=== PATIENT | male | born 2005 | race Caucasian/White ===

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

== ENCOUNTER 2023-09-17 15:44 | Emergency (ER) | payer OTHER, SELFPAY ==
--- NOTE | ~2023-09-17 | XR_ITS ---
EXAMINATION: XR SHOULDER, RIGHT CLINICAL INFORMATION: Right shoulder pain, patient felt a pop COMPARISON: None available. TECHNIQUE: AP external rotation, Grashey, scapular Y views of the right shoulder. FINDINGS: The bones and soft tissues are normal. No fracture. Glenohumeral and acromioclavicular alignment is anatomic with normal joint space. No abnormal soft tissue calcifications. XR/XR shoulder RT min 2V IMPRESSION: Normal right shoulder.
[2023-09-17 15:58] VITALS: BP 138/86; PULSE 78; RESP 16; TEMP 36.7; O2SAT 98; BMI 25.1
--- NOTE | 2023-09-17 16:06 | ED.EXTPRO ---
HPI - Extremity Problem General Chief complaint: Extremity Injury, Upper Stated complaint: rt shoulder popped Time Seen by Provider: 09/17/23 17:30 Source: patient, RN notes reviewed and old records reviewed Mode of arrival: ambulatory History of Present Illness HPI Narrative: 18-year-old male with past medical history of depression presenting to the ED complaining of right shoulder pain and popping S/P benching/weightlifting last night. Reports felt shoulder pop in and out of place multiple times, now with pain with range of motion. Denies direct injury/trauma or fall, numbness/tingling, weakness MD Complaint: extremity pain Related Data Previous Rx's Medication Instructions Recorded aripiprazole 10 mg tablet 10 mg PO DAILY #30 tabs 05/23/21 clonidine HCl 0.2 mg tablet 0.2 mg PO BID #6 tabs 05/23/21 doxycycline hyclate 100 mg tablet 100 mg PO DAILY #7 tabs 05/23/21 melatonin 3 mg tablet 9 mg (3 x 3 mg) PO BEDTIME #30 tabs 05/23/21 Allergies Allergy/AdvReac Type Severity Reaction Status Date / Time act nip AdvReac Intermediate Rash Uncoded 05/17/21 15:43 Review of Systems Review of Systems: Constitutional: No Fever, No Chills ENT/Mouth: No Ear Pain, No Nasal Congestion, No sore throat, No Rhinorrhea, No Swallowing Difficulty Cardiovascular: No Chest Pain, No SOB Respiratory: No Cough Gastrointestinal: No Nausea, No Vomiting, No Diarrhea, No Constipation, No Abdominal pain Musculoskeletal: + joint pain, No Myalgias, No Joint Swelling Skin: No Skin Lesions, No rash Neuro: No Weakness, No Numbness, No Paresthesias Yes all other systems are reviewed and are negative Constitutional: Constitutional: Reports as per HPI [facility] Past Medical History Attestation statement: The following information was validated with the patient. Source: old records reviewed Onset Date is defined in the Problem List Problems that require an onset date and time if occurred within 24 hrs of arrival to the ED Aortic Dissection and Rupture; Neurologic impairment; Cardiopulmonary Arrest; Endotracheal Intubation; Insertion or Replacement of Mechanical Circulatory Assist Device Medical History Acetaminophen overdose Depression Social History Social History Household Members: Family Household Members Other:: grandma Housing: Condominium Do you presently have visiting nurse or other home services: No Patient Tobacco Use Status: Never used Tobacco e-Cigarette/Vaping Use: Never Used Second Hand Smoke Exposure: No Substance Use Type: Marijuana Advance Directives: No Advance Directives Information Provided: No service: No Current occupational status: unemployed Sexual orientation: Did not discuss. Physical Exam Vital Signs: Vital Signs: Last Vital Signs Temp 98.1 F 09/17/23 15:58 Pulse 78 09/17/23 15:58 Resp 16 09/17/23 15:58 BP 138/86 09/17/23 15:58 Pulse Ox 98 09/17/23 15:58 O2 Del Method Room Air 09/17/23 15:58 BMI result Body Mass Index 25.1 Const: General: cooperative, healthy appearing and no acute distress Orientation/consciousness: patient oriented x3 Limitations: no limitations HEENT: Head: Yes normal to inspection and Yes atraumatic Ears: hearing grossly normal bilaterally General nose exam: Normal external nose present Face and sinus: Yes normal facial exam Eyes: General: appearance normal, both eyes and all related structures EOM: EOMs intact bilaterally Neck: Neck: Yes normal visual inspection and Yes no meningeal signs Resp: Effort & Inspection: normal respiratory effort and no respiratory distress Cardio: Rate: regular rate Skin: Rashes: no rashes Wounds: no wounds Neuro: General: patient oriented x3, tone normal and no meningeal signs Cranial nerves: Yes CN's II-XII intact bilaterally Gait exam (Neuro): Normal gait present Extrem: Other: Right shoulder without noted deformity. Mildly tender to AC joint. ROM intact, slightly limited abduction 2/2 pain. Neurovascular intact distally. No erythema or warmth General: Yes normal to inspection Course Course Course Narrative: RME: 18-year-old male presents to ED for right shoulder popping sound after doing incline bench press. Patient clinically range of motion of right shoulder but with popping sound. Will do x-ray. XR shoulder RT min 2V IMPRESSION: Normal right shoulder. Results discussed with patient including worrisome signs and symptoms and strict return precautions, and when to return to the emergency department. They verbalized understanding and feel safe for discharge at this time. Medical Decision Making Medical Decision Making MDM Narrative: 18-year-old male with past medical history of depression presenting to the ED complaining of right shoulder pain and popping S/P benching/weightlifting last night. On exam vital signs stable, NAD, nontoxic appearing, physical exam as noted above. Concern for soft tissue injury/tendinitis/tendon/ligament or rotator cuff injury. Low suspicion for fracture or dislocation. No evidence of septic joint Plan: X-rays Please refer to course for remaining clinical decision making, interpretation of labs/imaging results, and discussions with consultants and/or family members. Differential Diagnosis Differential Diagnoses: The differential diagnosis associated with the presentation includes As above Lab Data MDM Lab Attestation statement: I reviewed the patient's lab results. Independent Interpretation I performed an independent interpretation of an: Plain X-Ray Radiology Impression Discussion of test interpretation with radiology: I have reviewed the radiologist's reading. External Record Review External record reviewed: Inpatient record, Office record, Outpatient record, Prior outpatient labs, Prior outpatient radiology, Primary care record and Outside ED record Tests considered The following testing was considered but not selected: As above Prescription Management I considered prescription management with: Pain Medication Discharge Plan Discharge Clinical Impression: Acute shoulder pain Patient Disposition: Home, Self-Care Instructions: Shoulder Pain (ED) Additional Instructions: Your x-ray is unremarkable Take Tylenol and Motrin for pain Please avoid any heavy lifting/strenuous exercise until you see the specialist. Rest. Ice & heat, alternating If symptoms persist or worsen return to the ED Prescriptions: No Action aripiprazole 10 mg Tablet 10 mg PO DAILY Qty: 30 0RF melatonin 3 mg Tablet 9 mg PO BEDTIME Qty: 30 0RF doxycycline hyclate 100 mg Tablet 100 mg PO DAILY Qty: 7 0RF clonidine HCl 0.2 mg Tablet 0.2 mg PO BID Qty: 6 2RF Protocol: Hold for SBP< HOLD for SBP < : 90 Referrals: [facility] [Provider Group] Alfonso Mcdonough MD [Primary Care Provider] - Interventions: ED Discharge Assessment Last Done: 09/17/23 18:22 Discharge Date/Time: 09/17/23 18:23
== END 2023-09-17 18:23 | disposition home or self-care (01) ==
PROVIDERS: Emergency Provider Student in an Organized Health Care Education/Training Program; PCP Pediatrics
DX: M25.511 Pain in right shoulder (principal)
CPT/HCPCS: 73030; 99283

== ENCOUNTER 2023-10-11 10:56 | Outpatient (AMB) | payer OTHER, SELFPAY ==
[2023-10-11 10:58] VITALS: BMI 25.1
--- NOTE | 2023-10-11 10:58 | MHC.OFFVIS ---
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 Patient reports his pain has been going on for about 3 weeks but has improved and is a 1 on the 1-10 pain scale. He states he injured the shoulder at the gym on the incline bates bench. He denies any numbness or tingling. He has good ROM. 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 He currently states he has improvement in his pain and cracking and rates the pain as 1 on the scale of 0-10. He also experiences difficulty with pushing exercises and bench presses at gym. He denies any numbness or tingling. [facility] Medical History Acetaminophen overdose Depression Social History Household Members: Family Household Members Other:: grandma Housing: Condominium Do you presently have visiting nurse or other home services: No Patient Tobacco Use Status: Never used Tobacco e-Cigarette/Vaping Use: Never Used Second Hand Smoke Exposure: No Substance Use Type: Marijuana service: No Current occupational status: unemployed Sexual orientation: Did not discuss. Review of Systems Const All systems reviewed & are unremarkable except as noted in HPI and below Physical Exam Vital Signs: BMI result Body Mass Index 25.1 Const General: cooperative, healthy appearing, comfortable, no acute distress, well developed and alert Orientation/consciousness: patient oriented x3 HEENT Head: Yes normal to inspection, Yes normocephalic and Yes atraumatic Eyes General: appearance normal, both eyes and all related structures Resp Effort & Inspection: normal respiratory effort and able to speak in complete sentences Cardio Rate: regular rate Peripheral pulses: Peripheral pulses 2+ throughout GI Palpation (GI): Soft to palpation Skin Lesions: no lesions Rashes: no rashes Neuro General: patient oriented x3 Extrem Other: Right shoulder: Normal to inspection. No bony abnormality around the clavicle. He has full ROM in all planes with hypermobility in certain position. Positive Sulcus sign which is present on the contralateral side. Negative apprehension test. No tenderness over the coracoclavicular ligament. Results Reviewed Results Reviewed: xrays of the right shoulder obtained at an outside facility are negative for acute or chronic abnormalities. Assessment & Plan Assessment & Plan (1) Multidirectional instability of right glenohumeral joint: Code(s): M25.311 - Other instability, right shoulder Plan Given the fact that majority of his symptoms has resolved he was given a course of physical therapy to work on scapular stabilization and RTC strengthening. He needs to work on modification of overhead activities due to his naturally instable shoulder to prevent further injury. I also referred him to therapy to look at how he performs the exercises to correct him as needed and he was given a note for this. He will perform no overhead lifting and if symptoms persist or worsens, patient will contact the office, otherwise follow-up as needed. Orders: Orders PT Evaluation and Treatment Today M25.311 - Other instability, right shoulder Patient Instructions: Scribed for Lupe Ulloa PA-C, by Shaun Lane medical lab technician, on 10/11/2023 at 11:00 AM GABRIELLE. Lupe Baldwin PA-C, have personally reviewed and agree with the information entered by the scribe. Coding Level of Care Code New Pt Level 3 (91326) Diagnoses Multidirectional instability of right glenohumeral joint M25.311
== END 2023-10-11 11:25 | disposition home or self-care (01) ==
PROVIDERS: PCP Pediatrics; Visit Provider Physician Assistant
DX: M25.311 Other instability, right shoulder (principal)
CPT/HCPCS: 99203

== ENCOUNTER → 2023-10-11 10:56 | Outpatient (BNVA) | payer OTHER, SELFPAY | PROVIDERS: PCP Pediatrics; Visit Provider Physician Assistant | DX: M25.311 Other instability, right shoulder (principal) | CPT/HCPCS: 99202 ==

== ENCOUNTER 2023-12-25 16:00 | Outpatient (RCR) | payer OTHER, SELFPAY ==
--- NOTE | 2023-11-06 07:47 | MHC.PT.EP ---
[facility] [place] Office [place] Office [place] Office [address] [phone] F: [phone] F: [phone] F: [phone] F: [phone] Physical Therapy Plan of Care Date of Evaluation: 11/05/23 Date of Surgery: NA Diagnosis: MULTIDIRECTIONAL INSTABILITY OF R GLENOHUMERAL JOINT Assessment: Pt IS 18 YO M REFERRED TO PT FROM [facility] ([facility]) WITH MDI R SHLDER. PRESENTS WITH GOOD SHLDER ROM WITH SOME LIMITED STRENGTH WITH INSTABILITY NOTED WITH CERTAIN MOVEMENTS OF R SHLDER. Pt REPORTS SOME LIMITATIONS WITH WORK OUTS BECAUSE OF SHLDER INSTABILITY. SHOULD BENEFIT FROM PT TO HELP IMPROVE R SHLDER STABILITY FOR ADLS AND WORK OUTS Frequency and Duration: The patient will be seen 1X/WK X 6 WKS Short Term Goals: 1.INCREASED POSTURE AWARENESS AND AWARENESS OF SHOULDER CARE 2. 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 GYM WORKOUTS WITHOUT ISSUE 3. DECREASED R SHLDER PAIN AT LEAST 50% WITH ADLS Treatment Plan: Modalities to reduce pain, spasms and effusion. Manual therapy to restore motion and function. Therapeutic exercise to improve strength and flexibility. Neuromuscular re-education for posture and balance. Therapeutic activities to return to functional activities of daily living. Electronically signed by: ARLINE SUTHERLAND PT Please sign and return to therapist. Thank you for your referral.
--- NOTE | 2024-02-26 13:39 | MHC.PT.DC ---
[facility] [place] [facility] [place] [facility] [place] [facility] [address] [place] [address] [phone] F: [phone] F: [phone] F: [phone] F: [phone] Physical Therapy Discharge Report Diagnosis: MULTIDIRECTIONAL INSTABILITY OF R GLENOHUMERAL JOINT Date of Surgery: NA Date of Evaluation: 11/05/23 Date of Discharge: Treatments to Date: 5 Cancellations to Date: No Shows to Date: Discharge Status: Patient Elected to Stop Recommend MD Follow-up Discharge Summary: PER ASSESSMENT FROM LAST NOTE BY NEDRA MCRAE PT,DPT ON 12/25/23 Bayron comes to therapy today feeling about the same and just feels instability in his shoulder. So we focused more on scapular stab today with minor discomfort and good form throughout. Updated his HEP and discussed why we are starting off light with exercises and importance of getting stability within his shoulder with good understanding from patient. He felt like the tape last time wasn't doing much so we didn't do it today. Pt THEN NO SHOWED LAST SCHEDULED APPT Electronically signed by: ARLINE SUTHERLAND PT Please sign and return to therapist. Thank you for your referral.
== END 2024-02-26 13:40 | disposition home or self-care (01) ==
LOC: HO.PT 16:00
PROVIDERS: PCP Pediatrics; Visit Provider Physician Assistant
DX: M25.311 Other instability, right shoulder (principal)
CPT/HCPCS: 97110; 97161; 97535

== ENCOUNTER 2023-12-28 11:52 | Emergency (ER) | payer OTHER, SELFPAY ==
[2023-12-28 12:04] VITALS: BP 128/80; PULSE 109; RESP 18; TEMP 36.9; O2SAT 100; BMI 24.3
--- NOTE | 2023-12-28 12:04 | ED_ITS ---
HPI - URI/Sore Throat General Chief Complaint: Upper Respiratory Symptoms Stated Complaint: breathing difficulties, swollen tonsils Time Seen by Provider: 12/28/23 12:48 Source: patient Mode of arrival: ambulatory Limitations: no limitations History of Present Illness HPI Narrative: 18-year-old male presents with fatigue, malaise, myalgias, sore throat of which started yesterday reports that was bothering most is the sore throat he has not been able to eat much due to pain. Denies any sick contacts. Denies chest pain, shortness of breath, nausea, vomiting, abdominal pain, headache, vision changes, dizziness, weakness, diarrhea, changes in voice, drooling. He reports he gets this sometimes but usually goes away on its own after 3 days this time it seems worse Related Data Previous Rx's ?Medication ?Instructions ?Recorded Magic Mouthwash 5 ml PO TID #240 mL 12/28/23 Diphen/Lido/Antacid 1:1:1 240 mL suspension acetaminophen 325 mg capsule 650 mg (2 x 325 mg) PO Q4H PRN 12/28/23 (Tylenol) fever or pain #14 caps ibuprofen 600 mg tablet 600 mg PO Q6H PRN fever or pain 12/28/23 #14 tabs prednisone 50 mg tablet 50 mg PO DAILY 5 days #5 tabs 12/28/23 Allergies Allergy/AdvReac Type Severity Reaction Status Date / Time No Known Allergies Allergy Verified 12/28/23 12:07 Review of Systems Review of Systems: Yes all other systems are reviewed and are negative PMFSH Past Medical History Attestation statement: The following information was validated with the patient. Source: old records reviewed and nursing notes reviewed Medical History Acetaminophen overdose Depression Social History Social History Household Members: Family Household Members Other:: grandma Housing: Condominium Do you presently have visiting nurse or other home services: No Patient Tobacco Use Status: Never used Tobacco e-Cigarette/Vaping Use: Never Used Second Hand Smoke Exposure: No Substance Use Type: Marijuana Advance Directives: No service: No Current occupational status: unemployed Sexual orientation: Did not discuss. Physical Exam Vital Signs: Vital Signs: Last Vital Signs Temp 98.4 F 04/20/24 12:04 Pulse 109 H 12/28/23 12:04 Resp 18 12/28/23 12:04 BP 128/80 12/28/23 12:04 Pulse Ox 100 12/28/23 12:04 O2 Del Method Room Air 12/28/23 12:04 BMI result Body Mass Index 24.3 vss Appearance: Alert.? Oriented X3.? No acute distress.? Head: Normocephalic, atraumatic, no step-offs or deformities Eyes: Pupils equal, round and reactive to light.? ENT: Pharynx w/ enlarged tonsils b/l.??Uvula midline. No exudate or abscess. Speaking in full sentences controlling secretions well. External ears normal, TMs normal bilaterally and EAC's normal. No pain with manipulation of external ears bilaterally. No mastoid tenderness. Neck: Normal inspection.? Neck supple.? CVS: Normal heart rate and rhythm.? Pulses normal.? Respiratory: No respiratory distress.? Breath sounds normal.? Abdomen: Soft and nontender.? Skin: Skin warm and dry.? Normal skin color.? Normal skin turgor.? Extremities: No lower extremity edema.? No calf ttp. 5/5 strength to bilateral upper and lower extremities Neuro: Oriented X 3.? No motor deficit.? No sensory deficit. CN 2-12 intact Course Course Course Narrative: This is a rapid medical exam. Deferred additional HPI, ROS, PE to primary provider. 18yo male with no known medical history here with swollen tonsils x several days, subjective fevers, chills. Will obtain viral testing, monoscreen, strep. VSS Reevaluation(s) Reevaluation #1: Patient positive for mononucleosis. Negative for strep. Flu COVID RSV pending. Patient to be discharged with supportive measures, magic mouthwash and prednisone. Advised to return with new or worsening symptoms. Educated patient on diagnosis and treatment plan, answered all question, patient verbalizes understanding. At this time patient will be discharged home, advised to return with new or worsening symptoms. Educated on worrisome signs and symptoms and when to return. At this time I feel comfortable discharge home. Time: 13:18 Medical Decision Making Medical Decision Making [facility] Narrative: 1251 18 year old male prsents w/ fatigue, malaise, myalgias and sore throat since yesterday Pharynx w/ enlarged tonsils b/l.??Uvula midline. No exudate or abscess. Speaking in full sentences controlling secretions well. External ears normal, TMs normal bilaterally and EAC's normal. No pain with manipulation of external ears bilaterally. No mastoid tenderness. History and physical exam concerning for viral illness versus strep throat versus mononucleosis versus flu versus COVID. No signs of peritonsillar abscess, retropharyngeal abscess, epiglottitis, acute threat to airway. Plan will do viral testing is plan by previous provider. Differential Diagnosis Differential Diagnoses: The differential diagnosis associated with the presentation includes History and physical exam concerning for viral illness versus strep throat versus mononucleosis versus flu versus COVID. No signs of peritonsillar abscess, retropharyngeal abscess, epiglottitis, acute threat to airway. Admission/Observation Consideration of admission/observation: Escalation of care including admission/observation considered Unlikely Lab Data MDM Lab Attestation statement: I reviewed the patient's lab results. Labs: Lab Results 12/28/23 Range/Units 12:18 Monoscreen Positive A (Negative) S. pyogenes GrpA STEWART Negative (Negative) Tests considered The following testing was considered but not selected: No signs of threat to airway, no signs of abscess. No indication for imaging of the neck/throat. Prescription Management I considered prescription management with: Antibiotic Critical Care Time Critical Care Time Critical Care Time: No Discharge Plan Discharge Clinical Impression: Mononucleosis Patient Disposition: Home, Self-Care Instructions: Mononucleosis (ED) Additional Instructions: Take your medications as prescribed. If you were prescribed antibiotics today, it is important that you take your medication to their entirety, do not skip any doses, do not finish them early. Follow-up with your primary care provider this week. Return to the emergency department with new or worsening symptoms. Such as fevers, chills, chest pain, shortness of breath, nausea, vomiting, dizziness, headache, vision changes, lethargy In case of emergency call 911 You can take ibuprofen every 6 hours Tylenol every 4 as needed for fever pain or discomfort. Return with any new or worsening symptoms or if you feel like he can not breathe or if you have changes in voice or trouble controlling your own secretions. Prescriptions: New prednisone 50 mg tablet 50 mg PO DAILY 5 Days Qty: 5 0RF Magic Mouthwash Diphen/Lido/Antacid 1:1:1 240 mL suspension 5 ml PO TID Qty: 240 0RF Rx Instructions: Lidocaine Viscous 2 % 80mL; diphenhydramine 12.5 mg/5 mL 80mL; aluminum-mag hydrox-simeth [id number]/5mL 80mL Swish and spit, do not swallow acetaminophen [Tylenol] 325 mg capsule 650 mg PO Q4H PRN (Reason: fever or pain) Qty: 14 0RF ibuprofen 600 mg tablet 600 mg PO Q6H PRN (Reason: fever or pain) Qty: 14 0RF Referrals: Karla Mccarthy SERVICE CORRESPONDENT [Primary Care Provider] - 2 days Stand Alone Forms: Work/School Release Print Language: Turkmen
[2023-12-28 12:54] LABS: IDNOW Serial# 08D9AD1C; Strep A Nucleic Acid Negative (Negative)
[2023-12-28 13:05] LABS: Monotest Positive (Negative)
[2023-12-28 13:29] LABS: Influenza A PCR NEGATIVE (Negative); Influenza B PCR NEGATIVE (Negative); Resp Syncy Virus RNA Qual PCR NEGATIVE (Negative); SARS COV2 PCR INHOUSE NEGATIVE (Negative)
[2023-12-28] MEDS: Lidocaine HCl Viscous 2 % 15 ML SOLUTION MUCOUS MEM (13:51)
[2023-12-28] MEDS: dexAMETHasone sod phosphate 10 MG/ML VIAL IVPUSH (13:52)
[2023-12-28 13:56] VITALS: BP 126/76; PULSE 112; TEMP 37.3; O2SAT 100
== END 2023-12-28 14:04 | disposition home or self-care (01) ==
PROVIDERS: Nurse Practitioner Family; Emergency Provider Emergency Medicine; PCP Nurse Practitioner
DX: B27.90 Infectious mononucleosis, unspecified without complication (principal); J02.9 Acute pharyngitis, unspecified; Z11.52 Encounter for screening for COVID-19; Z20.828 Contact with and (suspected) exposure to other viral communicable diseases
CPT/HCPCS: 0241U; 86308; 87651; 99283; 99284; J1100

== ENCOUNTER 2023-12-30 05:31 | Emergency (ER) | payer OTHER, SELFPAY ==
[2023-12-30 05:55] VITALS: BP 125/72; PULSE 116; RESP 16; TEMP 37.6; O2SAT 100; BMI 24.2
[2023-12-30 06:25] LABS: IDNOW Serial# 08D9AD1C; Strep A Nucleic Acid Negative (Negative)
--- NOTE | 2023-12-30 09:27 | ED_ITS ---
HPI - URI/Sore Throat General Chief Complaint: General Medical Stated Complaint: tonsils swollen Time Seen by Provider: 12/30/23 09:11 Source: patient and old records reviewed Mode of arrival: ambulatory Limitations: no limitations History of Present Illness HPI Narrative: 18 yo male who was seen here on 12/27 and dx with mono after c/o sore throat and body aches. He comes back as overnight he felt like he couldn't swallow he cannot eat. He was unable to fill the Rx due to [employer] insurance issues. He feels his throat is so painful and swollen. MD elicited complaint: sore throat Onset (ago): day(s) (few) Consistency: constant Severity: severe Description of mucous: clear Able to tolerate fluids by mouth: Yes (but painful) Exacerbating factors: swallowing Relieving factors: nothing Context: other (known mono 12/27) Associated symptoms: fever, chills, headache and sore throat Treatments prior to arrival: none Related Data Previous Rx's ?Medication ?Instructions ?Recorded Magic Mouthwash 5 ml PO TID #240 mL 12/28/23 Diphen/Lido/Antacid 1:1:1 240 mL suspension acetaminophen 325 mg capsule 650 mg (2 x 325 mg) PO Q4H PRN 12/28/23 (Tylenol) fever or pain #14 caps ibuprofen 600 mg tablet 600 mg PO Q6H PRN fever or pain 12/28/23 #14 tabs prednisone 50 mg tablet 50 mg PO DAILY 5 days #5 tabs 12/28/23 amoxicillin 875 mg-potassium 1 tab PO BID #14 tabs 12/30/23 clavulanate 125 mg tablet Allergies Allergy/AdvReac Type Severity Reaction Status Date / Time No Known Allergies Allergy Verified 12/30/23 05:59 Review of Systems Review of Systems: Constitutional : No Fever, pos Chills, pos Fatigue ENT/Mouth : pos sore throat, No Rhinorrhea, pos anorexia Eyes: No Eye Pain, No Swelling, No Redness Cardiovascular : No Chest Pain, No SOB, No Dyspnea on Exertion Respiratory : No Cough, No Sputum Gastrointestinal : No Nausea, No Vomiting, No Diarrhea, No abdominal Pain Genitourinary : No Dysuria, No Urinary Frequency, No Hematuria, Musculoskeletal : No joint pain, No Myalgias, No Joint Swelling Skin : No Skin Lesions, No rash Neuro : No Weakness, No Numbness, No Dizziness, no Headache All other systems reviewed and are negative [facility] Past Medical History Attestation statement: The following information was validated with the patient. Source: old records reviewed Medical History Acetaminophen overdose Depression Social History Social History Household Members: Family Household Members Other:: grandma Housing: Condominium Do you presently have visiting nurse or other home services: No Patient Tobacco Use Status: Never used Tobacco Smoked in Last 30 Days: Yes e-Cigarette/Vaping Use: Never Used Second Hand Smoke Exposure: No Use of substances other than those prescribed or required for medical reasons: Yes Substance Use Type: Marijuana Advance Directives: No Advance Directives Information Provided: No service: No Current occupational status: unemployed Sexual orientation: Did not discuss. Physical Exam Vital Signs: Vital Signs: Last Vital Signs Temp 99.3 F 12/30/23 09:32 Pulse 105 H 12/30/23 09:32 Resp 18 12/30/23 09:32 BP 137/80 12/30/23 09:32 Pulse Ox 98 12/30/23 09:32 O2 Del Method Room Air 12/30/23 09:32 BMI result Body Mass Index 24.2 Appearance: Alert. Oriented X3. No acute distress. Eyes: Pupils equal, round and reactive to light. ENT: Pharynx tonsils are swollen but not kissing and uvula is midline no exudates erythema is noted there is no drooling, stridor and voice is not muffled Neck: bilateral ant and post shotty lymphadenopathy CVS: Normal heart rate and rhythm. Pulses normal. Respiratory: No respiratory distress. Breath sounds normal. Abdomen: Soft and nontender. Skin: Skin warm and dry. Normal skin color. Extremities: No lower extremity edema. Neuro: Oriented X 3. No motor deficit. No sensory deficit. Medications Administered Discontinued Medications Generic Name Dose Route Start Last Admin Trade Name Freq PRN Reason Stop Dose Admin Dexamethasone Sodium Phosphate 8 mg 12/30/23 09:19 12/30/23 09:30 Dexamethasone Sod Phosphate 4 Mg/Ml Vial IVPUSH 12/30/23 09:20 8 mg ONCE ONE Administration Sodium Chloride 1,000 mls @ 999 mls/hr 12/30/23 09:30 12/30/23 10:35 Ns IV 12/30/23 10:30 Infused .Q1H1M JESICA Infusion Ketorolac Tromethamine 15 mg 12/30/23 09:19 12/30/23 09:30 Ketorolac Tromethamine 15 Mg/Ml Vial IVPUSH 12/30/23 09:20 15 mg ONCE ONE Administration Medical Decision Making Medical Decision Making [facility] Narrative: 18 yo male with known mono here with c/o sore throat unable to fill Rx - at this time uvula is midline no stridor no muffled voice no drooling will give IVF, toradol, dexamethasone and reassess. He has no signs of deeper space i nfection, no signs of jaundice, denies abdominal pain. Differential Diagnosis Differential Diagnoses: The differential diagnosis associated with the presentation includes mono, pharyngitis Admission/Observation Consideration of admission/observation: Escalation of care including admission/observation considered feels much better after medications states he can go to the pharmacy today to fill Rx given repeat visits I am going to start on amoxicillin has hx of recurrent tonsillitis Lab Data [facility] Lab Attestation statement: I reviewed the patient's lab results. Labs: Lab Results 12/30/23 Range/Units 06:12 S. pyogenes GrpA STEWART Negative (Negative) External Record Review External record reviewed: Inpatient record Tests considered The following testing was considered but not selected: CT neck but uvulia is midline doubt [employer] or retropharyngeal abscess at this time Prescription Management I considered prescription management with: Pain Medication and Antibiotic Discharge Plan Discharge Clinical Impression: Acute tonsillitis due to infectious mononucleosis Patient Disposition: Home, Self-Care Instructions: Mononucleosis (ED), Tonsillitis (ED) Additional Instructions: return for yellow eyes, sever abdominal pain, easy bruising or any other complaints start the prednisone tomorrow no contact sports or anything that could cause injury to spleen (left upper abdomen) for 4 weeks Prescriptions: New amoxicillin-pot clavulanate 875-125 mg tablet 1 tab PO BID Qty: 14 0RF No Action prednisone 50 mg tablet 50 mg PO DAILY 5 Days Qty: 5 0RF Magic Mouthwash Diphen/Lido/Antacid 1:1:1 240 mL suspension 5 ml PO TID Qty: 240 0RF Rx Instructions: Lidocaine Viscous 2 % 80mL; diphenhydramine 12.5 mg/5 mL 80mL; aluminum-mag hydrox-simeth [id number]/5mL 80mL Swish and spit, do not swallow acetaminophen [Tylenol] 325 mg capsule 650 mg PO Q4H PRN (Reason: fever or pain) Qty: 14 0RF ibuprofen 600 mg tablet 600 mg PO Q6H PRN (Reason: fever or pain) Qty: 14 0RF Stand Alone Forms: Work/School Release Print Language: Austrian
[2023-12-30] MEDS: Ketorolac Tromethamine 15 MG/ML VIAL IVPUSH (09:30)
[2023-12-30] MEDS: 0.9 % Sodium Chloride 1,000 ML 999 ML IV (09:30)
[2023-12-30] MEDS: dexAMETHasone sod phosphate 4 MG/ML VIAL 8 MG IVPUSH (09:30)
[2023-12-30 09:32] VITALS: BP 137/80; PULSE 105; RESP 18; TEMP 37.4; O2SAT 98
--- NOTE | 2023-12-30 09:35 | PC.NURSE ---
a&ox4. vss and up to date aside from being slightly tachy. HR 105bpm. denies chest pain/palpitations. pt c/o 9/10 throat pain that increases while swallowing. pt verbalizes decreased PO intake and being unable to sleep d/t pain. no sob/wob noted. pt able to speak in full/clear sentences w/o difficulty. respirations even and unlabored. 20gIV placed in the right AC - medication/IVF administered per provider order. plan of care ongoing. call parra placed within reach.
[2023-12-30 11:51] VITALS: BP 127/72; PULSE 78; RESP 16; TEMP 37.4; O2SAT 97
== END 2023-12-30 11:52 | disposition home or self-care (01) ==
PROVIDERS: Emergency Provider Emergency Medicine; PCP Pediatrics
DX: B27.99 Infectious mononucleosis, unspecified with other complication (principal); J03.90 Acute tonsillitis, unspecified
CPT/HCPCS: 87651; 96361; 96374; 96375; 99284; 99285; J1100; J1885

== ENCOUNTER 2024-06-24 23:51 | Emergency (ER) | payer OTHER, SELFPAY ==
[2024-06-24 23:56] VITALS: BP 128/78; PULSE 66; RESP 16; TEMP 36.6; O2SAT 97; BMI 24.5
[2024-06-25 00:29] LABS: Appearance Urine Clear; Color Urine Yellow; Glucose Urine UA Negative (Negative); Leukocyte Esterase Urine Negative (Negative); Nitrite Urine Negative (Negative); Specific Gravity - Urine 1.025 (1.005-1.025); Urine Blood Negative (Negative); Urine Ketones Negative (Negative); Urine Protein Negative (Neg-Trace)
--- OUTSIDE RECORDS SUMMARY | 2024-06-25 00:49 | XMS_ITS | Continuity of Care Document ---
Author Organization [facility] Address Unknown Care Team Providers Care Mattress Maker Name Role Phone Cross Alina NOVA Primary Care Physician Unavaila ble Encounter [facility] [place] Date(s): 10/03/21 - 11/02/21 [facility] Attending Physician: Tc Soto Admitting Physician: Tc Soto Referring Physician: Tc Soto Allergies, Adverse Reactions, Alerts Substance Reaction Severity Status Cats Active Medications clonidine 0.1 mg oral tablet See Instructions, 1 tab by mouth in am and at 4 pm daily, 0 Refills, Maintenance Start Date: 08/20/13 Status: Ordered Dexedrine Spansule 10 mg oral capsule, extended release 2 capsule = 20 mg, By Mouth, Daily in AM, 0 Refills, Maintenance Start Date: 09/10/13 Status: Ordered dextroamphetamine 10 mg oral tablet 1 tablet = 10 mg, By Mouth, Daily, orderly for ADHD, # 30 tablet, 0 Refills, Maintenance Start Date: 09/07/13 Status: Ordered Seroquel 50 mg oral tablet 1 tablet = 50 mg, By Mouth, Daily, daily at bedtime - may take half a tablet at night if it makes him groggy in the morning., 0 Refills, Maintenance Start Date: 08/20/13 Status: Ordered
--- OUTSIDE RECORDS SUMMARY | 2024-06-25 00:49 | XMS_ITS | Continuity of Care Document ---
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
[2024-06-25 02:04] LABS: CT PCR NOT DETECTED (Not Detect.); NG PCR NOT DETECTED (Not Detect.)
--- NOTE | 2024-06-25 06:52 | ED_ITS ---
HPI - Male Genitourinary General Chief complaint: Urogenital-Male Stated complaint: STI? Penis pain and burning Time Seen by Provider: 06/25/24 06:39 Source: patient Mode of arrival: ambulatory Limitations: no limitations History of Present Illness ED Provider: Kayla Carias PA-C HPI Narrative: Patient is a 19 year old assigned male at with a history of MDD presenting to the emergency department today with painful urination and concern of STI. Patient states that he has had some burning with urination and is concerned about a possible STI. Patient denies any dizziness, lightheadedness, abdominal pain, nausea, vomiting, fever, chills, blurry vision, double vision, loss of vision, chest pain, difficulty breathing, shortness of breath, back pain, night sweats, increased urinary frequency, increased urinary urgency, blood in his urine or stool, syncope or a near syncopal episode, recent trauma or falls, bowel incontinence, bladder incontinence, or any other complaints at this time. Relieving factors: none Exacerbating factors: none Associated symptoms: Reports dysuria Related Data Previous Rx's ?Medication ?Instructions ?Recorded Magic Mouthwash 5 ml PO TID #240 mL 12/28/23 Diphen/Lido/Antacid 1:1:1 240 mL suspension acetaminophen 325 mg capsule 650 mg (2 x 325 mg) PO Q4H PRN 12/28/23 (Tylenol) fever or pain #14 caps ibuprofen 600 mg tablet 600 mg PO Q6H PRN fever or pain 12/28/23 #14 tabs prednisone 50 mg tablet 50 mg PO DAILY 5 days #5 tabs 12/28/23 amoxicillin 875 mg-potassium 1 tab PO BID #14 tabs 12/30/23 clavulanate 125 mg tablet Allergies Allergy/AdvReac Type Severity Reaction Status Date / Time No Known Allergies Allergy Verified 06/25/24 00:01 Review of Systems Constitutional: Constitutional: Reports no additional constitutional complaints, Denies chills, Denies fever(s) and Denies night sweats Eyes: Eyes: Reports no additional eye complaints, Denies blurry vision, Denies change in vision, Denies diplopia, Denies eye discharge, Denies loss of vision and Denies eye pain ENT: Denies dizziness Cardiovascular: Cardiovascular: Reports no additional cardiovascular complaints, Denies chest pain, Denies lightheadedness, Denies Loss of Consciousness and Denies dyspnea Respiratory: Respiratory: Reports no additional respiratory complaints and Denies dyspnea Gastrointestinal: Gastrointestinal: Reports no additional gastrointestinal complaints, Denies abdominal pain, Denies melena, Denies hematochezia, Denies change in bowel habits and Denies change in stool character Genitourinary: Genitourinary: Reports no additional male genitourinary complaints, Denies hematuria, Denies oliguria, Denies difficulty urinating, Reports dysuria, Denies urinary frequency, Denies urinary hesitancy, Denies urinary incontinence and Denies urinary urgency Musculoskeletal: Musculoskeletal: Reports no additional musculoskeletal complaints, Denies numbness and Denies tingling Neurologic: Denies dizziness, Denies loss of vision, Denies numbness and Denies tingling Psychiatric: Psychiatric: Reports no additional psychiatric complaints Endocrine: Endocrine: Reports no additional endocrine complaints Hematologic/Lymphatic: Hematologic/Lymphatic: Reports no additional hematologic/lymphatic complaints Allergic/Immunologic: Allergic/Immunologic: Reports no additional al lergic/immunologic complaints PMFSH Past Medical History Attestation statement: The following information was validated with the patient. Source: old records reviewed and nursing notes reviewed Medical History Acetaminophen overdose Depression Social History Social History Household Members: Family Household Members Other:: grandma Housing: Condominium Do you presently have visiting nurse or other home services: No Patient Tobacco Use Status: Never used Tobacco e-Cigarette/Vaping Use: Never Used Second Hand Smoke Exposure: No Substance Use Type: Marijuana Advance Directives: No Advance Directives Information Provided: Yes service: No Current occupational status: unemployed Sexual orientation: Did not discuss. Physical Exam Vital Signs: Vital Signs: Last Vital Signs Temp 97.8 F 06/25/24 07:10 Pulse 66 06/25/24 07:10 Resp 16 06/25/24 07:10 BP 128/78 06/25/24 07:10 Pulse Ox 97 06/25/24 07:10 O2 Del Method Room Air 06/25/24 07:10 BMI result Body Mass Index 24.5 Const: General: cooperative, no acute distress, alert and awake Nutritional Appearance: well nourished Orientation/consciousness: patient oriented x3 Limitations: no limitations HEENT: Head: Yes normal to inspection and Yes atraumatic Ears: hearing grossly normal bilaterally and external ears normal General nose exam: Normal external nose present, no nasal discharge noted and no epistaxis Face and sinus: Yes normal facial exam, No abrasion and No laceration Mouth: Normal oral and palatal mucosa present, no drooling and no muffled voice Eyes: General: appearance normal, both eyes and all related structures Periorbital: periorbital findings normal Eyelids: Yes eyelids normal Conjunctivae: conjunctivae normal Pupils: Equal, round and reactive pupils present EOM: EOMs intact bilaterally Neck: Neck: Yes normal visual inspection, Yes full ROM and Yes no lymphadenopathy Chest: Chest palpation & inspection: normal inspection of the chest Resp: Effort & Inspection: normal respiratory effort and able to speak in complete sentences GI: Inspection: Yes normal to inspection Neuro: General: patient oriented x3 and moves all extremities Cranial nerves: Yes Equal, round and reactive pupils present Cognition (Neuro): normal cognition Extrem: General: Yes normal to inspection, Yes full ROM and Yes capillary refill normal Psych: Appearance: grossly normal Mental Status: mental status grossly normal Affect: normal affect Attitude: cooperative Thought process: Normal thought process present Thought content: Normal thought content present Insight: Good insight present (Psych) Medical Decision Making Medical Decision Making MDM Narrative: Patient is a 19 year old assigned male at with a history of MDD presenting to the emergency department today with painful urination and concern of STI. Patient's physical exam was unremarkable. Patient declined a genital exam. Patient's urine showed no acute process. Patient negative for CT/NG. I explained my physical exam findings as well as all test results to the patient. I answered all questions asked by the patient. I stressed the importance of the patient taking his medication as directed (either prescribed or as the over the counter packaging recommends). I stressed the importance of the patient following up with his primary care provider. I stressed the importance of the patient returning to the emergency department immediately if his symptoms were to worsen or if he were to develop any dizziness, shortness of breath, difficulty breathing, chest pain, blurry vision, loss of vision, nausea, vomiting, abdominal pain, fever, chills, back pain, or any other complaints. Patient verbalized agreement and understanding with this treatment plan and discharge. Differential Diagnosis Differential Diagnoses: The differential diagnosis associated with the presentation includes STI screening Dysuria UTI Chlamydia Gonorrhea Admission/Observation Consideration of admission/observation: Escalation of care including admission/observation considered Patient would have been admitted to the hospital had his work up had any findings where hospital admission was appropriate and his clinical presentation warranted hospital admission. Lab Data [facility] Lab Attestation statement: I reviewed the patient's lab results. My interpretation of these results are in the [facility] Rationale portion of this note. Labs: Lab Results 06/25/24 Range/Units 00:13 Urine Color Yellow Urine Appearance Clear Urine pH 6.0 (5.0-9.0) Ur Specific [place] 1.025 (1.005-1.025) Urine Protein Negative (Neg-Trace) mg/dL Urine Glucose (UA) Negative (Negative) mg/dL Urine Ketones Negative (Negative) mg/dL Urine Blood Negative (Negative) Urine Nitrite Negative (Negative) Ur Leukocyte Esterase Negative (Negative) Chlam trachomat DNA PCR NOT DETECTED (Not Detect.) N.gonorrhoeae DNA (PCR) NOT DETECTED (Not Detect.) Discharge Plan Discharge Clinical Impression: Screen for STD (sexually transmitted disease) Patient Disposition: Home, Self-Care Instructions: Sexually Transmitted Diseases (ED), Male Condom Use (ED), Safe Sex Practices (ED) Additional Instructions: Your STD/STI testing was negative. Follow up with your primary care provider. Return to the emergency department immediately if your symptoms worsen or if you develop any dizziness, shortness of breath, difficulty breathing, chest pain, blurry vision, loss of vision, nausea, vomiting, abdominal pain, fever, chills, back pain, or any other complaints. Please see the information below about our Patient Portal. If you are not yet enrolled in the [facility] Patient Portal, you will receive an enrollment email invitation following your visit to any [facility] [place] [place] setting. You may also self-enroll in the Patient Portal by visiting our website: [email or web address]/portal The following information is required to access the Patient Portal: - Your [facility] [place] - Your personal home email address (must match what is in your electronic medical record, Registration staff can assist with this) - Name - Date of Capabilities of the Patient Portal: - Message some providers - View upcoming appointments - Access your health summary, medical history, and visit history - View current conditions and allergies - View procedure and lab results - View your medications, including guidelines, side effects, and precautions - Complete pre-appointment questionnaires requested by your provider - Ready summary reports of your office visits and procedures To access the Patient Portal Mobile Yogesh, follow these directions: - Search [employer] in the Yogesh Store or Google Play Store - Download the Yogesh - Search for [facility] - Enter your login/password Prescriptions: No Action prednisone 50 mg tablet 50 mg PO DAILY 5 Days Qty: 5 0RF Magic Mouthwash Diphen/Lido/Antacid 1:1:1 240 mL suspension 5 ml PO TID Qty: 240 0RF Rx Instructions: Lidocaine Viscous 2 % 80mL; diphenhydramine 12.5 mg/5 mL 80mL; aluminum-mag hydrox-simeth [id number]/5mL 80mL Swish and spit, do not swallow acetaminophen [Tylenol] 325 mg capsule 650 mg PO Q4H PRN (Reason: fever or pain) Qty: 14 0RF ibuprofen 600 mg tablet 600 mg PO Q6H PRN (Reason: fever or pain) Qty: 14 0RF amoxicillin-pot clavulanate 875-125 mg tablet 1 tab PO BID Qty: 14 0RF Referrals: Alfonso Mcdonough MD [Primary Care Provider] - Stand Alone Forms: Work/School Release Interventions: ED Discharge Assessment Last Done: 06/25/24 07:10 Discharge Date/Time: 06/25/24 07:11 Print Language: Cameroonian
[2024-06-25 07:10] VITALS: BP 128/78; PULSE 66; RESP 16; TEMP 36.6; O2SAT 97
== END 2024-06-25 07:11 | disposition home or self-care (01) ==
PROVIDERS: Emergency Provider Emergency Medicine; PCP Pediatrics
DX: R30.0 Dysuria (principal); Z20.2 Contact with and (suspected) exposure to infections with a predominantly sexual mode of transmission; Z79.899 Other long term (current) drug therapy
CPT/HCPCS: 81003; 87491; 87591; 99282; 99283

== ENCOUNTER → 2024-09-16 23:40 | Outpatient (BNV) | payer OTHER, SELFPAY | PROVIDERS: Visit Provider Specialist | DX: R07.9 Chest pain, unspecified (principal) | CPT/HCPCS: 71046 ==

== ENCOUNTER 2024-12-17 12:57 | Emergency (ER) | payer OTHER, SELFPAY ==
--- NOTE | ~2024-12-17 | XR_ITS ---
EXAMINATION: XR SHOULDER, RIGHT CLINICAL INFORMATION: R shoulder pain/injury COMPARISON: None available. TECHNIQUE: AP external rotation, Grashey, scapular Y, and axillary views of the right shoulder. FINDINGS: Normal bone mineralization. No fracture, dislocation, or suspicious bone lesion. Normal alignment. The glenohumeral joint is normal. The AC joint is normal. There is a neutral lateral acromion. No undersurface spurring. The subacromial space is preserved. Remainder of the soft tissue and bony structures appear normal. XR/XR shoulder RT min 2V IMPRESSION: Normal right shoulder. Electronically signed by: Jorge Dale MD 12/17/2024 01:33 PM EDT
[2024-12-17 12:58] VITALS: BP 158/89; PULSE 89; RESP 18; TEMP 36.5; O2SAT 99; BMI 25.8
--- NOTE | 2024-12-17 12:59 | ED.UPPEXIN ---
HPI - Extremity Injury (Upper) General Chief Complaint: Extremity Injury, Upper Stated Complaint: shoulder inj Time Seen by Provider: 12/17/24 13:32 Source: patient, RN notes reviewed and old records reviewed Mode of arrival: ambulatory History of Present Illness ED Provider: Jenni Prakash PA-C HPI narrative: 19-year-old male no significant past medical history presenting to the ED complaining of right shoulder pain s/p pushing generator at work 2 days ago. Reports limited ROM secondary to pain. Denies numbness, tingling, weakness, direct injury/fall Related Data Previous Rx's ?Medication ?Instructions ?Recorded Magic Mouthwash 5 ml PO TID #240 mL 12/28/23 Diphen/Lido/Antacid 1:1:1 240 mL suspension acetaminophen 325 mg capsule 650 mg (2 x 325 mg) PO Q4H PRN 12/28/23 (Tylenol) fever or pain #14 caps ibuprofen 600 mg tablet 600 mg PO Q6H PRN fever or pain 12/28/23 #14 tabs prednisone 50 mg tablet 50 mg PO DAILY 5 days #5 tabs 12/28/23 amoxicillin 875 mg-potassium 1 tab PO BID #14 tabs 12/30/23 clavulanate 125 mg tablet Allergies Allergy/AdvReac Type Severity Reaction Status Date / Time No Known Allergies Allergy Verified 12/17/24 13:00 Review of Systems Review of Systems: Yes all other systems are reviewed and are negative Constitutional: Constitutional: Reports as per [facility] Past Medical History Attestation statement: The following information was validated with the patient. Source: old records reviewed Medical History Acetaminophen overdose Depression Social History Social History Household Members: Family Household Members Other:: grandma Housing: Condominium Do you presently have visiting nurse or other home services: No Patient Tobacco Use Status: Never used Tobacco e-Cigarette/Vaping Use: Never Used Second Hand Smoke Exposure: No Substance Use Type: Marijuana service: No Current occupational status: unemployed Sexual orientation: Did not discuss. Physical Exam Vital Signs: Vital Signs: Last Vital Signs Temp 97.7 F 12/17/24 12:58 Pulse 89 12/17/24 12:58 Resp 18 12/17/24 12:58 BP 158/89 H 12/17/24 12:58 Pulse Ox 99 12/17/24 12:58 O2 Del Method Room Air 12/17/24 12:58 BMI result Body Mass Index 25.8 Const: General: cooperative, healthy appearing and no acute distress Orientation/consciousness: patient oriented x3 Limitations: no limitations HEENT: Head: Yes normal to inspection and Yes atraumatic Ears: hearing grossly normal bilaterally General nose exam: Normal external nose present Face and sinus: Yes normal facial exam Eyes: General: appearance normal, both eyes and all related structures EOM: EOMs intact bilaterally Neck: Neck: Yes normal visual inspection and Yes no meningeal signs Resp: Effort & Inspection: normal respiratory effort and no respiratory distress Cardio: Rate: regular rate Skin: Rashes: no rashes Wounds: no wounds Neuro: General: patient oriented x3, tone normal and no meningeal signs Cranial nerves: Yes CN's II-XII intact bilaterally Gait exam (Neuro): Normal gait present Extrem: Other: Right shoulder without noted deformity. Limited ABduction secondary to pain. Internal rotation WNL. Neurovascularly intact distally. No pitting edema. General: Yes normal to inspection Course Course Course Narrative: This is a Rapid Medical Exam performed in triage by Jenni Prakash PA-C. Full HPI, ROS and PE to be performed by primary ED provider. 19 year old male presenting to the ED c/o R shoulder pain/injury after pushing a generator 2 days ago. Reports has had limited ROM since. Denies numbness/tingling. PE: limited anterior abduction 2/2 pain, neurovascularly intact distally, no deformity Plan: x-ray XR shoulder RT min 2V IMPRESSION: Normal right shoulder. Results discussed with patient including worrisome signs and symptoms and strict return precautions, and when to return to the emergency department. They verbalized understanding and feel safe for discharge at this time. Medical Decision Making Medical Decision Making MDM Narrative: 19-year-old male no significant past medical history presenting to the ED complaining of right shoulder pain s/p pushing generator at work 2 days ago. On exam vital signs stable, NAD, nontoxic appearing, physical exam as noted above. Concern for MSK pain/strain vs partial tear or rotator cuff injury. Lower suspicion for fracture, dislocation. No evidence of septic joint/arthritis Plan: X-ray, PCP/orthopedic referral Please refer to course for remaining clinical decision making, interpretation of labs/imaging results, and discussions with consultants and/or family members. Differential Diagnosis Differential Diagnoses: The differential diagnosis associated with the presentation includes As above Admission/Observation Consideration of admission/observation: Escalation of care including admission/observation considered Lab Data MDM Lab Attestation statement: I reviewed the patient's lab results. Independent Interpretation I performed an independent interpretation of an: Plain X-Ray Radiology Impression Discussion of test interpretation with radiology: I have reviewed the radiologist's reading. External Record Review External record reviewed: Inpatient record, Office record, Outpatient record, Prior outpatient labs, Prior outpatient radiology, Primary care record and Outside ED record Tests considered The following testing was considered but not selected: As above Prescription Management I considered prescription management with: Pain Medication Chronic Conditions Patient?s care impacted by: Other Social Determinants Patient?s care significantly limited by Social Determinants of Health including: Other Social Determinant of Health Discharge Plan Discharge Clinical Impression: Acute shoulder pain Patient Disposition: Home, Self-Care Instructions: Shoulder Pain (ED) Additional Instructions: your x-ray is unremarkable you likely need an MRI, please follow up with primary care doctor or Orthopedics to obtain this Ice and elevate Take ibuprofen and Tylenol for pain/swelling If pain persists or worsens/becomes unbearable return to the ED Prescriptions: No Action prednisone 50 mg tablet 50 mg PO DAILY 5 Days Qty: 5 0RF Magic Mouthwash Diphen/Lido/Antacid 1:1:1 240 mL suspension 5 ml PO TID Qty: 240 0RF Rx Instructions: Lidocaine Viscous 2 % 80mL; diphenhydramine 12.5 mg/5 mL 80mL; aluminum-mag hydrox-simeth [id number]/5mL 80mL Swish and spit, do not swallow acetaminophen [Tylenol] 325 mg capsule 650 mg PO Q4H PRN (Reason: fever or pain) Qty: 14 0RF ibuprofen 600 mg tablet 600 mg PO Q6H PRN (Reason: fever or pain) Qty: 14 0RF amoxicillin-pot clavulanate 875-125 mg tablet 1 tab PO BID Qty: 14 0RF [place] [facility] [place] [facility] [place] Group[place] [facility] [facility]] [facility] [Provider Group] - 1 week Work Connection [Outside] Stand Alone Forms: Work/School Release Print Language: Pashto
[2024-12-17 15:07] VITALS: BP 158/89; PULSE 89; RESP 18; TEMP 36.5; O2SAT 99
--- OUTSIDE RECORDS SUMMARY | 2024-12-17 17:08 | XMS_ITS | Encounter Summary ---
Author Organization [facility] Address [address] [place] [address] Phone Care Team Providers Care [facility] Owner Name Role Phone Alfonso Mcdonough MD Primary Care Provider [phone] Encounter Details Date Type Department Care Team (Late st Contact Info) Description 02/07/2015 Documentation EM Family Medicine [address] [place] [address] Family Medicine, Physician [address] [place], [place] [id number] Social History Tobacco Use Types Packs/Day Years Used Date Smoking Tobacco: Never Assessed Sex and Gender Information Value Date Recorded Sex Assigned at Male 09/07/2023 11:14 AM EST Legal Sex Male 4:57 PM EDT Gender Identity Male 09/07/2023 11:14 AM EST Sexual Orientation Bisexual 09/07/2023 11 :14 AM EST documented as of this encounter Plan of Treatment Not on file documented as of this encounter Visit Diagnoses Not on filedocumented in this encounter Care Teams [facility] Owner Relationship Specialty Start Date End Date Alfonso Mcdonough MD [address] [facility] [place] [address] PCP - General 04/19/17 04/29/24 documented as of this encounter
--- OUTSIDE RECORDS SUMMARY | 2024-12-17 17:08 | XMS_ITS | Encounter Summary ---
Author Organization [facility] Address [address] [place] [address] Phone Care Team Providers Care Sugar Controller Name Role Phone Alfonso Mcdonough MD Primary Care Provider [phone] Reason for Visit * Reason Onset Date Comments Med Refill Med Refill 03/24/2020 Encounter Details Date Type Department Care Team (Late st Contact Info) Description 03/16/2020 Refill [facility] [place] [address] [place] [address] Alfonso Mcdonough MD [address] [place] [address] Acne vulgaris Social History Tobacco Use Types Packs/Day Years Used Date Smoking Tobacco: Never Smokeless Tobacco: Never Comments:Never smoker Hunger/Food Answer Date Recorded No 09/27/2018 Stable Housing Answer Date Recorded No 09/10/2019 Transportation Concerns Answer Date Rec orded No 09/27/2018 Hazards in Home Answer Date Recorded No 09/27/2018 Financing Utilities Answer Date Recorde d No 09/27/2018 Safety at Home Answer Date Recorded No 09/27/2018 Outside Support Answer Date Recorded No 09/27/2018 Understanding Health Concerns Answer Da te Recorded Yes 09/03/2019 Financing Health Concerns Answer Date R ecorded No 09/27/2018 Missing School or Work Answer Date Mitul rded No 09/27/2018 Sex and Gender Information Value Date Recorded Sex Assigned at Male 09/07/2023 11:14 AM EST Legal Sex Male 4:57 PM EDT Gender Identity Male 09/07/2023 11:14 AM EST Sexual Orientation Bisexual 09/07/2023 11 :14 AM EST documented as of this encounter Miscellaneous Notes * Telephone Encounter - Emani Menjivar LPN - 03/16/2020 9:30 AM EDT Needs refill on Doxycycline 100mg. Last pe 08/27 documented in this encounter Plan of Treatment Not on file documented as of this encounter Visit Diagnoses Diagnosis Acne vulgaris Other acne documented in this encounter Care Teams Sugar Controller Relationship Specialty Start Date End Date Alfonso Mcdonough MD [address] [facility] [place] [address] PCP - General 04/19/17 04/29/24 documented as of this encounter
--- OUTSIDE RECORDS SUMMARY | 2024-12-17 17:08 | XMS_ITS | Clinical Summary ---
Author Organization [facility] Address [address] [place] [address] Phone Care Team Providers Care Bradder Name Role Phone Unavailable Primary Care Provider Unavailabl e Allergies No known active allergies Medications amoxicillin-clav ulanate 875-125 MG per tablet Take 1 tablet by mouth 2 (two) times a day. 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 Autistic spectrum disorder 07/26/2017 Acne 07/26/2017 Attention deficit hyperactivity disorder (ADHD) 07/26/2017 Resolved Problems Problem Noted Date Diagnosed Date Resolved Date Counseling and coordination of care 09/03/2019 11/08/2021 Immunizations Immunization Administration Dates Next Due COVID-19 Pfizer, bivalent, 12+ years 05/23/2022 DTaP 5 02/25/2007, 5,2003,09/07,2003 H1N1 09/06/2009 HPV, Quadrivalent 12/30/2014,06/16/2014,05/06/20 14 Hep A, ped/adol 04/25/2015,05/06/2014 Hep B, ped/adol 01/28/2004,2003,2003 Hib (HbOC) 09/04/2004 Hib (PRP-T) 2003,2003,2003 IPV 07/18/2011, 7,06/05/2004,09/07,2003 Influenza Split 07/29/2012 Influenza, injectable, quadr ivalent, preservative free 09/06/2023,05/23/2022,09/06/2020,09/03,08/25/2018,07/26/2017,07/19/2016 Influenza, injectable, trivalent 09/06/2009 Influenza, intranasal, quadrivalent 05/13/2013 Influenza, intranasal, trivalent 07/18/2011,10/03/2010 MMR 06/05/2004 MMRV 02/25/2007 Meningococcal Conj (Menactra) MCV4P 09/03/2019,0 05/06/2014 Pneumococcal Conjugate 09/04/2004,2003,2003,06/03 Td (adult) (MBL), 2 Lf tetan us toxoid, PF, adsorbed 07/18/2011 Tdap 05/06/2014 Varicella 06/05/2004 Family History Medical History Relation Name Comments Hyperlipidemia Father Joey Colon Asthma Mother Marley Mckoy Relation Name Status Comments Father Joey Colon Alive Half-Sister Alive adoptive Sister : ADD/ADHD Mother Marley Colon Alive adoptive mother : Alive and well Social History Tobacco Use Types Packs/Day Years Used Date Smoking Tobacco: Never Smokeless Tobacco: Never Comments:Never smoker Hunger/Food Answer Date Recorded In the last 12 months, did y ou or your family ever eat less than you felt you should because there wasn't enough money for food? No 09/06/2023 Stable Housing Answer Date Recorded Are you worried that in the next 2 months you may not have stable housing? No 09/06/2023 Transportation Concerns Answer Date Rec orded In the last 12 months, have you or your family ever had to go without healthcare because you didn't have a way to get there? No 09/06/2023 Hazards in Home Answer Date Recorded Think about the place you li ve. Do you have problems with any of the following? Pests (mice or roaches), mold, no/not working smoke detectors, water leaks, no window guards. No 2022 Financing Utilities Answer Date Recorde d In the last 12 months, has t he electric, gas, oil, or water company threatened to shut off your services in your home? No 09/06/2023 Safety at Home Answer Date Recorded Are you or your family worried about feeling saf e in your home? No 09/06/2023 Outside Support Answer Date Recorded Do you feel that you need mo re support from other people or programs to help you care for yourself or your family? No 09/06/2023 Understanding Health Concerns Answer Da te Recorded Do you need help understandi ng your or your child's healthcare needs (diagnosis, medications, plan, etc.)? No 09/06/2023 Financing Health Concerns Answer Date R ecorded In the last 12 months, was t here a time when your child needed to see a doctor or get medications or supplies but could not because of cost? No 09/06/2023 Missing School or Work Answer Date Mitul rded Did you or your child miss s chool or work because of a health problem that could have been avoided? No 09/06/2023 Sex and Gender Information Value Date Recorded Sex Assigned at Male 09/07/2023 11:14 AM EST Legal Sex Male 4:57 PM EDT Gender Identity Male 09/07/2023 11:14 AM EST Sexual Orientation Bisexual 09/07/2023 11 :14 AM EST Last Filed Vital Signs Vital Sign Reading Time Taken Comments Blood Pressure 133/83 09/06/2023 1:38 PM EST Pulse 72 09/06/2023 1:38 PM EST Temperature 36.6 ??C (97.8 ??F) 01/03/2024 9:22 AM ED T Respiratory Rate - - Oxygen Saturation - - Inhaled Oxygen Concentration - - Weight 79 kg (174 lb 3.2 oz) 01/03/2024 9:22 AM EDT Height 182.9 cm (6') 09/06/2023 1:38 PM EST Body Mass Index 23.63 09/06/2023 1:38 PM EST Plan of Treatment Health Maintenance Due Date Last Done Comments Men B Vaccine (1 of 2 - Standard) 2019 Influenza Vaccines (#1) 2024 09/06/20, 05/23/2022, 09/06/2020, Additional history exists DTaP,Tdap,and Td Vaccines (7 - Td or Tdap) 05/06/2024 05/06/2014, 07/18/2011, 02/25/2007, Additional history exists COVID-19 Vaccine (4 - 2023-2 5 season) 2024 05/23/2022, 03/07/2021, 02/10/2021 Hepatitis B Vaccines Completed 01/28/2004, 2003, 2003 HIB Vaccines Completed 09/04/2004, 10/11, 2003, Additional history exists Pneumococcal Vaccine Completed 09/04/2004, 06/05/2004, 2003, Additional history exists MMR Vaccines Completed 02/25/2007, 06/05/2004 Varicella Vaccines Completed 02/25/2007, 06/05/2004 IPV Vaccines Completed 07/18/2011, 02/07, 06/05/2004, Additional history exists HPV Vaccines Completed 12/30/2014, 04/2014, 05/06/2014 Hepatitis A Vaccines Completed 04/25/2015, 05/06/20 14 Meningococcal Vaccine Completed 09/03/2019, 014 Insurance [facility] NON PCC [facility]
--- OUTSIDE RECORDS SUMMARY | 2024-12-17 17:08 | XMS_ITS | Encounter Summary ---
Author Organization [facility] Address [address] [place] [address] Phone Care Team Providers Care Manager Office Services Name Role Phone Alfonso Mcdonough MD Primary Care Provider [phone] Encounter Details Date Type Department Care Team (Late st Contact Info) Description 09/27/2010 Documentation EM Family Medicine [address] [place] [address] Family Medicine, Physician [address] [place], [place] [phone] Social History Tobacco Use Types Packs/Day Years [...] on filedocumented in this encounter Care Teams Manager Office Services Relationship Specialty Start Date End Date Alfonso Mcdonough MD [address] [facility] [place] [address] PCP - General 04/19/17 04/29/24 documented as of this encounter
--- OUTSIDE RECORDS SUMMARY | 2024-12-17 17:08 | XMS_ITS | Encounter Summary ---
Author Organization [facility] Address [address] [place] [address] Phone Care Team Providers Care Icu Rn Name Role Phone Alfonso Mcdonough MD Primary Care Provider [phone] Encounter Details Date Type Department Care Team (Late st Contact Info) Description 11/13/2010 Documentation EM Family Medicine [address] [place] [address] Family Medicine, Physician [address] [place], [place] [phone] Social History Tobacco Use Types Packs/Day Years [...] on filedocumented in this encounter Care Teams Icu Rn Relationship Specialty Start Date End Date Alfonso Mcdonough MD [address] [place] [address] PCP - General 04/19/17 04/29/24 documented as of this encounter
--- OUTSIDE RECORDS SUMMARY | 2024-12-17 17:08 | XMS_ITS | Encounter Summary ---
Author Organization [facility] Address [address] [place] [address] Phone Care Team Providers Care Sales Analyst Name Role Phone Alfonso Mcdonough MD Primary Care Provider [phone] Encounter Details Date Type Department Care Team (Late st Contact Info) Description 05/26/2012 Documentation EM Family Medicine [address] [place] [address] Family Medicine, Physician [address] [place], [place] [phone] Social History Tobacco Use Types Packs/Day Years [...] on filedocumented in this encounter Care Teams Sales Analyst Relationship Specialty Start Date End Date Alfonso Mcdonough MD [address] [place] [address] PCP - General 04/19/17 04/29/24 documented as of this encounter
--- OUTSIDE RECORDS SUMMARY | 2024-12-17 17:08 | XMS_ITS | Encounter Summary ---
Author Organization [facility] Address [address] [place] [address] Phone Care Team Providers Care Cylinder Handler Name Role Phone Alfonso Mcdonough MD Primary Care Provider [phone] Encounter Details Date Type Department Care Team (Late st Contact Info) Description 04/25/2017 Conversion Encounter [facility] [place] [address] [place] [address] Social History Tobacco Use Types Packs/Day Years Used Date Smoking Tobacco: Never Comments:Never smoker Sex and Gender Information Value Date Recorded Sex Assigned at Male 09/07/2023 11:14 AM EST Legal Sex Male 4:57 PM EDT Gender Identity Male 09/07/2023 11:14 AM EST Sexual Orientation Bisexual 09/07/2023 11 :14 AM EST documented as of this encounter Plan of Treatment Not on file documented as of this encounter Visit Diagnoses Not on filedocumented in this encounter Care Teams Cylinder Handler Relationship Specialty Start Date End Date Alfonso Mcdonough MD [address] [place] [address] PCP - General 04/19/17 04/29/24 documented as of this encounter
--- OUTSIDE RECORDS SUMMARY | 2024-12-17 17:08 | XMS_ITS | Encounter Summary ---
Author Organization [facility] Address [address] [place] [address] Phone Care Team Providers Care Ribbon Lap Machine Tender Name Role Phone Alfosno Mcdonough MD Primary Care Provider [phone] Encounter Details Date Type Department Care Team (Late st Contact Info) Description 12/27/2009 Documentation EM Family Medicine [address] [place] [address] Family Medicine, Physician [address] [place], [place] [phone] Social History Tobacco Use Types Packs/Day Years [...] on filedocumented in this encounter Care Teams Ribbon Lap Machine Tender Relationship Specialty Start Date End Date Alfonso Mcdonough MD [address] [place] [address] PCP - General 04/19/17 04/29/24 documented as of this encounter
--- OUTSIDE RECORDS SUMMARY | 2024-12-17 17:08 | XMS_ITS | Continuity of Care Document ---
Author Name [facility] Organization [facility] Care Team Providers Care Microwave Supervisor Name Role Phone [facility] Unavailable Unavailable Problems Combined list of problems from Department of [facility] and [facility] Affairs facilities. It does not include entries that were removed or entered in error. Problem Status Onset Date Problem Type Date of Resolution Comme nts Source Back pain Active Condition 0091C-[facility] Hemorrhoid Active Condition 0091C-[facility] C amp [facility] Medications Combined list of outpatient medications from [facility] and [facility] Affairs facilities.Medications provided include 1) outpatient medications from the last 15 months, and 2) patient-reported medications. 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 Oral (given by mouth) Complet ed 08/06/2022 2 2021 21.0 0358C-[facility] lidocaine 5% topical gel See Instruct ions, small amount to affected area every hr as needed for pain, # 28 g, 0 total refill(s ), Maintena nce, Pharmacy : [facility] Complet ed 04/12/20232022 28.0 0091C-[facility] Proctofoam HC 1%-1% rectal foam 1 appl(s), Rectal, TID, X 7 days, # 10 g, 0 total refill(s ), Acute, Pharmacy : [facility] Per rectum Complet ed 04/08/20232022 10.0 0091C-[facility] psyllium 3.4 g/5.8 g oral powder for reconstitut ion 1 teaspoon ful, Oral, TID, PRN constipa tion, dissolve in 8 oz of fluid, # 450 g, 0 total refill(s ), Karolina alvarez, Pharmacy : [facility] Oral (given by mouth) Complet ed 04/12/20232022 450.0 0091C-[facility] Immunizations Combined list of available immunizations from the Department of Defense and Veterans Affairs facilities. Immunization Series Date Given Administered By Site Reaction Lot Number CVX Code Drug Clinical Services Professional Status Comments Source hepatitis B adult vaccine 2021 BRENDALDURAND Shoul leif, right (delt oid) [id number] [employer] complet ed hepatitis B adult vaccine 08/21/22 Given 0358A-N [facility] SARS-CoV-2 mRNA(toziname wtt-mvzi-sqj) vac 2021 MERCEDESHEIST ERBERG Shoul leif, left (delt oid) [id number] [employer] complet ed SARS-CoV- 2 mRNA(tozi nameran-t ris-suc)v ac 08/21/22 Given 0358A-N [facility] measles/mumps /rubella virus vaccine 2021 DOMINIQUE gonzalez Arm [id number] [employer] complet ed measles/m umps/rube lla virus vaccine 08/21/22 Given 0358A-[facility] adenovirus vaccine, live 2021 BARBARA RICE [id number] 143 [employer] [facility] complet ed adenoviru s vaccine, live 07/23/22 Given 0358A-[facility] SARS-CoV-2 mRNA(toziname rsa-qgso-xtt) vac 2021 BROOKEMTHOMAS Shoul leif, left (delt oid) [id number] 217 [employer] complet ed SARS-CoV- 2 mRNA(tozi nameran-t ris-suc)v ac 07/23/22 Given [facility] [place] hepatitis B adult vaccine 2021 ADRIANAMONROE Shoul leif, right (delt oid) [id number] [employer] complet ed hepatitis B adult vaccine 07/23/22 Given 0358A-N [facility] influenza virus vaccine, inactivated 2021 ARIANAKAGADO Shoul leif, left (delt oid) [id number] [employer] [place] complet ed influenza virus vaccine, inactivat ed 07/23/22 Given 0358A-[facility] tetanus, diphtheria, acellular pertu is 2021 ARIANAKAGADO Shoul leif, right (delt oid) [id number] [employer] complet ed Early/Lat e Reason: Early/Lat e Reason: First dose given 0358A-[facility] varicella virus vaccine 2021 LYNNETTE Alba t Arm [id number] [employer] complet ed varicella virus vaccine 07/23/22 Given 0358A-[facility] measles/mumps /rubella virus vaccine 2021 LYNNETTE Alba t Arm [id number] 03 Gl[employer]Smith[employer] complet ed measles/m umps/rube lla virus vaccine 07/23/22 Given 0358A-[facility] meningococcal conjugate vaccine 2021 KARLIEEBOYD Shoul leif, right (delt oid) [id number] sanofi pasteur complet ed meningoco ccal conjugate vaccine 07/23/22 Given 0358A-[facility] poliovirus vaccine, inactivated 2021 KARLIEEBOYD Shoul leif, right (delt oid) [id number] sanofi pasteur complet ed polioviru s vaccine, inactivat ed 07/23/22 Given 0358A-[facility] tuberculin purified protein derivative 2021 KARLIEETAMERA Arm, left forea rm [id number] sanofi pasteur complet ed tuberculi n purified protein derivativ e 07/23/22 Given 0358A-[facility] Results Combined list of recent chemistry, hematology and other laboratory results from Department of Defense and Veterans Affairs, ranging from 15 months to all on record, depending upon the facility. Order Name Results Value Reference Range Date Interpretation Specimen Comments Source Blood Bank ABO Grouping.L C B 07/[address] [place] [address] Blood Bank Rh Factor.LC Positive 07/19 Result Comment: Please note: Prior records for this patient's ABO / Rh type are not available for additional verificatio n. Performed At: [address] [id number] Thony Apple MD Ph:[phone] [address] [place] [address] Hematolo gy Sickle Cell Screen Negative (07/18/22 12:35 PM) 07/[address] [place] [address] Hematolo gy G6PD Normal (07/18/22 12:35 PM) 07/[address] [place] [address] Miscella neous Sendouts DNA Sample Collected? YES 07/[address] [place] [address] Infectio us Disease Source of Test.LC Gen Force Test (07/18/22 12:35 PM) 07/[address] [place] [address] Infectio us Disease HCVAB CDD LC NEGATIVE 07/[address] [place] [address] Infectio us Disease HBSAb CDD LC NEGATIVE 07/[address] [place] [address] Infectio us Disease HIV-1/2 AG/AB 4G CDD LC NEGATIVE 07/18 Result Comment: Performed At: 1 [facility] [address] [place] [address] [address] [place] [address] WILLA FAY PHD Ph:[phone] [address] [place] [address] Infectio us Disease HBSAg CDD LC NEGATIVE 07/[address] [place] [address] Immunolo gy/Serol ogy Mumps IgG Antibody Negative *NA* (07/18/22 12:35 PM) 07/[address] [place] [address] Immunolo gy/Serol ogy Rubeola IgG Antibody Positive *NA* (07/18/22 12:35 PM) 07/[address] [place] [address] [place] Immunolo gy/Serol ogy Rubella IgG Antibody Positive *NA* (07/18/22 12:35 PM) 07/[address] [place] [address] Immunolo gy/Serol ogy VZV IgG Scrn Positive *NA* (07/18/22 12:35 PM) 07/[address] [place] [address] [facility] Disease RPR.EPI NON-REAC TIVE 07/18 Result Comment: INTERPRETAT ION(S): RESULT FURTHER TESTING INTERPRETAT ION NON-REACTIV E Yes, TP-PA No serological evidence of syphilis. No follow-up necessary unless clinically indicated (e.g. early syphilis). REACTIVE Yes, RPR Titer Consistent with Syphilis (past or current infection). Notifiable result/cond ition for Local/State Public Health (PH) department, notify your local PH immediately for proper notificatio n. Methodology : particle agglutinati on Performed by: [facility] access hospital [id number] [place] [address], [place] [address] [place] [address] [facility] Disease Hepatitis A Ab, Total.EPI POSITIVE 07/18 Result Comment: INTERPRETAT ION(S): NEGATIVE: Indicates susceptibil ity to Hepatitis A Infection. EQUIVOCAL: It is recommended that a specimen be drawn in two weeks and retested. POSITIVE: Indicates prior or acute infection, or immunizatio n to Hepatitis A. This assay does not distinguish among different classes of antibodies. The assay cannot be used to determine if a positive sample is due to an acute infection or is the result of a previous infection. The sample should be tested in a specific HAV IgM assay if the overall clinical picture is indicative of an ongoing, acute or recent infection. Testing performed by [employer]. Performed by: [facility] access hospital [address] [place] [address], [place] [address] [place] [address] Vital Signs Combined list of inpatient and outpatient Vital Signs from Department of Defense and Veterans Affairs, ranging from 12 months to all on record, depending upon the facility. Vital Sign Value Date Comments Source Respiratory Rate 16 br/min 02/01/2023 12:41:[address] [place] [address] Systolic Blood Pressure 110 mm[Hg] 02/02/20 23 12:41:[address] [place] [address] Diastolic Blood Pressure 80 mm[Hg] 023 12:41:[address] [place] [address] Peripheral Pulse Rate 68 bpm 02/01/2023 12:41:00 0091C[facility] Mean Arterial Pressure, Calc 90 mm[Hg] 02/01/2023 12:41:00 [facility] Temperature Oral 36.5 Kaykay 02/01/2023 12:41:00 [facility] Blood Pressure Manual Manual 02/01/2023 12:41:00 00[facility] BP Site Left arm 02/01/2023 12:41:[address] [place] [address] Chai Systolic Blood Pressure 134 mm[Hg] 02/16/20 22 10:21:[address] [place] [address] MEPS Diastolic Blood Pressure 82 mm[Hg] 022 10:21:[address] [place] [address] MEPS Peripheral Pulse Rate 88 bpm 02/15/2022 10:21:[address] [place] [address] MEPS Respiratory Rate 16 br/min 04/01/2023 12:43:[address] [place] [address] Chai Mean Arterial Pressure, Calc 83 mm[Hg] 04/01/2023 12:43:[address] [place] [address] [place] Peripheral Pulse Rate 63 bpm 04/01/2023 12:43:[address] [place] [address] Chai Blood Pressure Manual Automatic 04/01/2023 12:43:[address] [place] [address] Chai Temperature Oral 36.6 Kaykay 04/01/2023 12:43:00 00[facility] Systolic Blood Pressure 116 mm[Hg] 04/01/20 23 12:43:00 [facility] Diastolic Blood Pressure 66 mm[Hg] 023 12:43:00 [facility] BP Site Left arm 04/01/2023 12:43:00 00[facility] BP Site Right arm 04/15/2023 14:06:00 00[facility] Blood Pressure Manual Manual 04/15/2023 14:06:00 00[facility] Temperature Oral 36.8 Kaykay 04/15/2023 14:06:00 [facility] Mean Arterial Pressure, Calc 77 mm[Hg] 04/15/2023 14:06:00 [facility] Peripheral Pulse Rate 72 bpm 04/15/2023 14:06:[address] [place] [address] Respiratory Rate 16 br/min 04/15/2023 14:06:[address] [place] [address] Systolic Blood Pressure 100 mm[Hg] 04/15/20 23 14:06:[address] [place] [address] Diastolic Blood Pressure 66 mm[Hg] 023 14:06:[address] [place] [address] Procedures Combined list of: 1) Procedures from Department of [facility] facilities going back up to [facility] 18 months, not all [place] non-surgical procedures are included; 2) All procedures from the [facility] facilities. Procedure Procedure Type Code Date Perfomer Comments Sourbeatriz e No Procedure information available for data migration. [address] [place] [address] Social History Combined list of available smoking, tobacco, and other social history from [facility] and [facility] facilities. Social History Type Response Date Comment Sourc e Sex Representation Male (finding) 02/02/2022 Un known Organization Tobacco Frequent/Daily expos ure to secondhand smoke in indoor/confined spaces No. Never-cigarette user Cigarette use:. Never-other tobacco user (not cigarettes) Other Tobacco use:. Ambulatory Pharmacy Sexual Orientation Ambula tory Pharmacy Gender identity Ambulator y Pharmacy Assessment and Plan Combined list of future care activities from [facility] and [facility] facilities (e.g., assessment and plan notes, appointments, orders, and referrals). Additional future care activities may be listed in the Plan of Care section. Result Assessment and Plan Date Source Assessment and Plan Extracted from:Title : RES SEP FROM AD Author: NICK FUNEZ PA-C Date: 04/15/23 1.?Encounter for other specified special examinations Patient is medically fit to separate from service. ?Patient has no apparent disqualifying conditions. Appropriate for follow up with [place] medical providers. Documentation completed on the DD Form 2807-1 and DD Form 2808. ?Completed documentation scanned into Courtney?and the originals were returned to the patient. ? Nick Funez PA-C 3 [facility]? ? ? Extracted from:Title: Hemorrhoid Author: CHRISTOPHER HERRERA NP Date: 04/01/23 1.?Hemorrhoid One non thrombosed?external hemorrhoid, no internal hemorrhoid, no active bleed, no erythema. Plan: Light duty one week Increase fiber in diet increase water intake Rx as below ? Ordered: lidocaine topical(lidocaine 5% topical gel), See Instructions, small amount to affected area every hr as needed for pain, # 28 g, 0 total refill(s), Maintenance, small amount to affected area every hr as needed for pain, Pharmacy: [facility] [Not filled] hydrocortisone-pramoxine topical(Proctofoam HC 1%-1% rectal foam), 1 appl(s), Rectal, TID, X 7 days, # 10 g, 0 total refill(s), Acute, 1 appl(s) Rectal TID,x7 days, Pharmacy: [facility] [Not filled] psyllium(psyllium 3.4 g/5.8 g oral powder for reconstitution), 1 teaspoonful, Oral, TID, PRN constipation, dissolve in 8 oz of fluid, # 450 g, 0 total refill(s), Maintenance, 1 teaspoonful Oral TID,PRN:constipation,Instr:diss olve in 8 oz of fluid, Pharmacy: [facility] [Not filled] ? Extracted from:Title: [facility] - Thoracic back pain Author: ROCKY MEDELLIN IDC Date: 02/01/23 1.?Thoracic back pain Pt has already established specialty care at [facility] for this concern on 12/07. Encouraged patient to comply with recommended treatment plan, and return to this clinic for re-evaluation if no improvement with compliance. Educated patient on importance of attending appointments as he already has hx of 1 no show at [facility]. No duty status limitations provided today. Pt v/u, denied questions or concerns. HM1 Rocky Medellin Independent Duty Sample Tester 3 [place], [place] ? ? ? Extracted from:Title: Education Note Author: JAC REED Date: 02/15/22 Patient Education Materials Follows: 12/17/[address] [place] [address] Assessment and Plan Extracted from:Title : RES SEP FROM AD Author: NICK FUNEZ PA-C Date: 04/15/23 1.?Encounter for other specified special examinations Patient is medically fit to separate from service. ?Patient has no apparent disqualifying conditions. Appropriate for follow up with [place] medical providers. Documentation completed on the DD Form 2807-1 and DD Form 2808. ?Completed documentation scanned into Courtney?and the originals were returned to the patient. ? Nick Funez PA-C 3 [facility]? ? ? Extracted from:Title: Hemorrhoid Author: CHRISTOPHER HERRERA, MARGY Date: 04/01/23 1.?Hemorrhoid One non thrombosed?external hemorrhoid, no internal hemorrhoid, no active bleed, no erythema. Plan: Light duty one week Increase fiber in diet increase water intake Rx as below ? Ordered: lidocaine topical(lidocaine 5% topical gel), See Instructions, small amount to affected area every hr as needed for pain, # 28 g, 0 total refill(s), Maintenance, small amount to affected area every hr as needed for pain, Pharmacy: [facility] [Not filled] hydrocortisone-pramoxine topical(Proctofoam HC 1%-1% rectal foam), 1 appl(s), Rectal, TID, X 7 days, # 10 g, 0 total refill(s), Acute, 1 appl(s) Rectal TID,x7 days, Pharmacy: [facility] [Not filled] psyllium(psyllium 3.4 g/5.8 g oral powder for reconstitution), 1 teaspoonful, Oral, TID, PRN constipation, dissolve in 8 oz of fluid, # 450 g, 0 total refill(s), Maintenance, 1 teaspoonful Oral TID,PRN:constipation,Instr:diss olve in 8 oz of fluid, Pharmacy: [facility] [Not filled] ? Extracted from:Title: [facility] - Thoracic back pain Author: ROCKY MEDELLIN IDC Date: 02/01/23 1.?Thoracic back pain Pt has already established specialty care at [facility] medicine for this concern on 12/07. Encouraged patient to comply with recommended treatment plan, and return to this clinic for re-evaluation if no improvement with compliance. Educated patient on importance of attending appointments as he already has hx of 1 [facility] show at [facility]. No duty status limitations provided today. Pt v/u, denied questions or concerns. HM1 Rocky MMorgan Medellin Independent Duty Sample Tester HM3 [place], [place] ? ? ? Extracted from:Title: Education Note Author: JAC REED Date: 02/15/22 Patient Education Materials Follows: 12/17/[address] [place] [address] Functional Status Combined list of recent functional and cognitive assessments recorded at [facility] of Defense and [facility] ([facility] Functional [place] Measurement (FIM) Scale: 1 = Total Assistance (Subject = 0% +), 2 = Maximal Assistance (Subject = 25% +), 3 = Moderate Assistance (Subject = 50% +), 4 = Minimal Assistance (Subject = 75% +), 5 = Supervision, 6 = Modified [place] (Device), 7 = Complete [place] (Timely, Safely). Assessment Date/Time Source Assessment Type Assessment Skill Assessment Score Assessment Details No data available for this section
--- OUTSIDE RECORDS SUMMARY | 2024-12-17 17:08 | XMS_ITS | Encounter Summary ---
Author Organization [facility] Address [address] [place] [address] Phone Care Team Providers Care Platform Loader Name Role Phone Alfonso Mcdonough MD Primary Care Provider [phone] Reason for Visit * Reason Comments Med Refill Encounter Details Date Type Department Care Team (Late st Contact Info) Description 09/04/2019 Refill [facility] [place] [address] [place] [address] Alfonso Mcdonough MD [address] [place] [address] Acne vulgaris Social History Tobacco Use Types Packs/Day Years Used Date Smoking Tobacco: Never Smokeless Tobacco: Never Comments:Never smoker Hunger/Food Answer Date Recorded No 09/27/2018 Stable Housing Answer Date Recorded 0 09/27/2018 Transportation Concerns Answer Date Rec orded No [...] encounter Miscellaneous Notes * Telephone Encounter - Tessa Goodwin LPN - 09/04/2019 9:14 AM EST Pharm fax received for DOXYCYCLINE 100 MG capsule refused. documented in this encounter Plan of Treatment Not on file documented as of this encounter Visit Diagnoses Diagnosis Acne vulgaris Other acne documented in this encounter Care Teams Platform Loader Relationship Specialty Start Date End Date Alfonso Mcdonough MD [address] [facility] [place] [address] PCP - General 04/19/17 04/29/24 documented as of this encounter
--- OUTSIDE RECORDS SUMMARY | 2024-12-17 17:08 | XMS_ITS | Encounter Summary ---
Author Organization [facility] Address [address] [place] [address] Phone Care Team Providers Care Ediphone Operator Name Role Phone Alfonso Mcdonough MD Primary Care Provider [phone] Encounter Details Date Type Department Care Team (Late st Contact Info) Description 01/24/2015 Documentation [facility] [address] [place] [address] Family Medicine, Physician [address] [place], [place] [id number] Social History Tobacco Use Types Packs/Day Years [...] on filedocumented in this encounter Care Teams Ediphone Operator Relationship Specialty Start Date End Date Alfonso Mcdonough MD [address] [place] [address] PCP - General 04/19/17 04/29/24 documented as of this encounter
== END 2024-12-17 14:20 | disposition home or self-care (01) ==
PROVIDERS: Emergency Provider Emergency Medicine Emergency Medical Services
DX: M25.511 Pain in right shoulder (principal)
CPT/HCPCS: 73030; 99282; 99283

== ENCOUNTER → 2024-12-17 13:02 | Outpatient (BNV) | payer OTHER, SELFPAY | PROVIDERS: Visit Provider Radiology Diagnostic Radiology | DX: M25.511 Pain in right shoulder (principal) | CPT/HCPCS: 73030 ==

== ENCOUNTER 2024-12-24 09:33 | Emergency (ER) | payer OTHER, SELFPAY ==
[2024-12-24 09:55] VITALS: BP 149/90; PULSE 86; RESP 16; TEMP 36.6; O2SAT 98; BMI 24.4
--- NOTE | 2024-12-24 10:07 | ED_ITS ---
HPI - URI/Sore Throat General Chief Complaint: Upper Respiratory Symptoms Stated Complaint: swollen tonsills Time Seen by Provider: 12/24/24 09:53 Source: patient Mode of arrival: ambulatory Limitations: no limitations History of Present Illness ED Provider: MARCELLA BENITEZ Narrative: 19 yo male healthy here with c/o sore throat for several days this is not helping - he has not had a fever. he has white patches on this tonsils. He is able to swallow. He took tylenol with some relief. MD elicited complaint: sore throat Onset (ago): day(s) (several) Consistency: constant Severity: moderate Able to tolerate fluids by mouth: Yes Exacerbating factors: swallowing Relieving factors: nothing Associated symptoms: denies other symptoms Treatments prior to arrival: acetaminophen Related Data Previous Rx's ?Medication ?Instructions ?Recorded Magic Mouthwash 5 ml PO TID #240 mL 12/28/23 Diphen/Lido/Antacid 1:1:1 240 mL suspension acetaminophen 325 mg capsule 650 mg (2 x 325 mg) PO Q4H PRN 12/28/23 (Tylenol) fever or pain #14 caps ibuprofen 600 mg tablet 600 mg PO Q6H PRN fever or pain 12/28/23 #14 tabs prednisone 50 mg tablet 50 mg PO DAILY 5 days #5 tabs 12/28/23 amoxicillin 875 mg-potassium 1 tab PO BID #14 tabs 12/30/23 clavulanate 125 mg tablet amoxicillin 500 mg tablet 500 mg PO BID #20 tabs 12/24/24 Allergies Allergy/AdvReac Type Severity Reaction Status Date / Time No Known Allergies Allergy Verified 12/24/24 09:56 Review of Systems Review of Systems: Constitutional : No Fever, No Chills, No Fatigue ENT/Mouth : pos sore throat, No Rhinorrhea Eyes: No Eye Pain, No Swelling, No Redness Cardiovascular : No Chest Pain, No SOB, No Dyspnea on Exertion Respiratory : No Cough, No Sputum Gastrointestinal : No Nausea, No Vomiting, No Diarrhea, No abdominal Pain Genitourinary : No Dysuria, No Urinary Frequency, No Hematuria, Musculoskeletal : No joint pain, No Myalgias, No Joint Swelling Skin : No Skin Lesions, No rash Neuro : No Weakness, No Numbness, No Dizziness, no Headache All other systems reviewed and are negative PMFSH Past Medical History Attestation statement: The following information was validated with the patient. Source: old records reviewed Medical History Acetaminophen overdose Depression Social History Social History Household Members: Family Household Members Other:: grandma Housing: Condominium Do you presently have visiting nurse or other home services: No Patient Tobacco Use Status: Never used Tobacco e-Cigarette/Vaping Use: Never Used Second Hand Smoke Exposure: No Substance Use Type: Marijuana Advance Directives: No Advance Directives Information Provided: Yes service: No Current occupational status: unemployed Sexual orientation: Did not discuss. Physical Exam Vital Signs: Vital Signs: Last Vital Signs Temp 97.9 F 12/24/24 09:55 Pulse 86 12/24/24 09:55 Resp 16 12/24/24 09:55 BP 149/90 H 12/24/24 09:55 Pulse Ox 98 12/24/24 09:55 O2 Del Method Room Air 12/24/24 09:55 BMI result Body Mass Index 24.4 Appearance: Alert. Oriented X3. No acute distress. Eyes: Pupils equal, round and reactive to light. ENT: Pharynx moderate erythema with moderare tonsilar swelling and mild exudates, uvula is midline, normal voice, no stridor, tolerating secretions. Neck: Normal inspection. Neck supple. CVS: Normal heart rate and rhythm. Pulses normal. Respiratory: No respiratory distress. Breath sounds normal. Abdomen: Soft and nontender. Skin: Skin warm and dry. Normal skin color. Normal skin turgor. Extremities: No lower extremity edema. No calf ttp Neuro: Oriented X 3. No motor deficit. No sensory deficit. CN2-12 intact Medical Decision Making Medical Decision Making [facility] Narrative: 19 yo male healthy here with c/o sore throat on exam consistent with GAS pharyngitis - normal ROM, no neck swelling, uvula is midline at this time no signs of [employer] WORK[employer] or abscess - will start on steroid in ED, ibuprofen and amoxicillin Differential Diagnosis Differential Diagnoses: The differential diagnosis associated with the presentation includes viral syndrome, GAS pharyngitis Admission/Observation Consideration of admission/observation: Escalation of care including admission/observation considered not toxic can be managed as outpatient Lab Data [facility] Lab Attestation statement: I reviewed the patient's lab results. Labs: Lab Results 12/24/24 Range/Units 10:05 S. pyogenes GrpA STEWART Negative (Negative) External Record Review External record reviewed: Inpatient record Prescription Management I considered prescription management with: Antibiotic Discharge Plan Discharge Clinical Impression: Pharyngitis Patient Disposition: Home, Self-Care Instructions: Pharyngitis (ED) Additional Instructions: alternate tylenol and motrin for pain return for worsening symptoms not infective after 12 hours wash your water bottles and throw away toothbrush 24 hours after first dose strep test is negative but will treat as same given it looks clinically consistent with strep On amoxicillin, softer bowel movements are to be expected. Call your provider if you move your bowels more than 4 times a day, your bowel movements are almost all liquid, or you get a rash.? Prescriptions: New amoxicillin 500 mg tablet 500 mg PO BID Qty: 20 0RF No Action prednisone 50 mg tablet 50 mg PO DAILY 5 Days Qty: 5 0RF Magic Mouthwash Diphen/Lido/Antacid 1:1:1 240 mL suspension 5 ml PO TID Qty: 240 0RF Rx Instructions: Lidocaine Viscous 2 % 80mL; diphenhydramine 12.5 mg/5 mL 80mL; aluminum-mag hydrox-simeth 050bd-[id number]-86hg/5mL 80mL Swish and spit, do not swallow acetaminophen [Tylenol] 325 mg capsule 650 mg PO Q4H PRN (Reason: fever or pain) Qty: 14 0RF ibuprofen 600 mg tablet 600 mg PO Q6H PRN (Reason: fever or pain) Qty: 14 0RF amoxicillin-pot clavulanate 875-125 mg tablet 1 tab PO BID Qty: 14 0RF Stand Alone Forms: Work/School Release Print Language: Serbian
[2024-12-24 10:24] LABS: IDNOW Serial# 58CA691E; Strep A Nucleic Acid Negative (Negative)
[2024-12-24] MEDS: dexAMETHasone sod phosphate 4 MG/ML VIAL 8 MG PO (10:39)
[2024-12-24] MEDS: Ibuprofen Oral Susp 200 MG/10 ML ORAL.SUSP 600 MG PO (10:40)
[2024-12-24 11:05] LABS: Influenza A PCR NEGATIVE (Negative); Influenza B PCR NEGATIVE (Negative); Resp Syncy Virus RNA Qual PCR NEGATIVE (Negative); SARS COV2 PCR INHOUSE NEGATIVE (Negative)
[2024-12-24 11:36] VITALS: BP 149/90; PULSE 86; RESP 16; TEMP 36.6; O2SAT 98
--- OUTSIDE RECORDS SUMMARY | 2024-12-24 11:46 | XMS_ITS | Encounter Summary ---
Author Organization [facility] Address [address] [place] [address] Phone Care Team Providers Care Order Management Specialist Name Role Phone Alfonso Mcdonough MD Primary Care Provider [phone] Reason for Visit * Reason Comments Med Refill Encounter Details Date Type Department Care Team (Late st Contact Info) Description 09/04/2019 Refill [facility] [place] [address] [place] [address] Alfonso Mcdonough MD [address] [place] [address] Acne vulgaris Social History Tobacco Use Types [...] acne documented in this encounter Care Teams Order Management Specialist Relationship Specialty Start Date End Date Alfonso Mcdonough MD [address] [facility] [place] [address] PCP - General 04/19/17 04/29/24 documented as of this encounter
--- OUTSIDE RECORDS SUMMARY | 2024-12-24 11:46 | XMS_ITS | Encounter Summary ---
Author Organization [facility] Address [address] [place] [address] Phone Care Team Providers Care Lead Machinist Name Role Phone Alfonso Mcdonough MD Primary Care Provider [phone] Encounter Details Date Type Department Care Team (Late st Contact Info) Description 09/27/2010 Documentation [facility] [address] [place] [address] Family Medicine, Physician [address] [place], [place] [id number] Social History Tobacco Use Types Packs/Day Years [...] on filedocumented in this encounter Care Teams Lead Machinist Relationship Specialty Start Date End Date Alfonso Mcdonough MD 150 [facility] [place] [address] PCP - General 04/19/17 04/29/24 documented as of this encounter
--- OUTSIDE RECORDS SUMMARY | 2024-12-24 11:46 | XMS_ITS | Encounter Summary ---
Author Organization [facility] Address [address] [place] [address] Phone Care Team Providers Care Sheet Sorter Name Role Phone Alfonso Mcdonough MD Primary Care Provider [phone] Reason for Visit * Reason Onset Date Comments Med Refill Med Refill 03/24/2020 Encounter Details Date Type Department Care Team (Late st Contact Info) Description 03/16/2020 Refill [facility] [place] [address] [place] [address] Alfonso Mcdonough MD [address] [place] [address] Acne vulgaris Social History Tobacco Use Types [...] acne documented in this encounter Care Teams Sheet Sorter Relationship Specialty Start Date End Date Alfonso Mcdonough MD 150 [facility] [place] [address] PCP - General 04/19/17 04/29/24 documented as of this encounter
--- OUTSIDE RECORDS SUMMARY | 2024-12-24 11:46 | XMS_ITS | Encounter Summary ---
Author Organization [facility] Address [address] [place] [phone] Phone Care Team Providers Care Labeling Associate Name Role Phone Alfonso Mcdonough MD Primary Care Provider [phone] Encounter Details Date Type Department Care Team (Late st Contact Info) Description 01/24/2015 Documentation [facility] [address] [place] [address] Family Medicine, Physician [address] [place], [place] [phone] Social History Tobacco Use Types Packs/Day Years [...] on filedocumented in this encounter Care Teams Labeling Associate Relationship Specialty Start Date End Date Alfonso Mcdonough MD [address] [facility] [place] [address] PCP - General 04/19/17 04/29/24 documented as of this encounter
--- OUTSIDE RECORDS SUMMARY | 2024-12-24 11:46 | XMS_ITS | Encounter Summary ---
Author Organization [facility] Address [address] [place] [address] Phone Care Team Providers Care Outside Sales Account Manager Name Role Phone Alfonso Mcdonough MD Primary Care Provider [phone] Encounter Details Date Type Department Care Team (Late st Contact Info) Description 05/26/2012 Documentation [facility] [address] [place] [address] Family Medicine, Physician [address] [place], [place] [phone] Social History Tobacco Use Types Packs/Day Years [...] on filedocumented in this encounter Care Teams Outside Sales Account Manager Relationship Specialty Start Date End Date Alfonso Mcdonough MD 150 [facility] [place] [address] PCP - General 04/19/17 04/29/24 documented as of this encounter
--- OUTSIDE RECORDS SUMMARY | 2024-12-24 11:46 | XMS_ITS | Encounter Summary ---
Author Organization [facility] Address [address] [place] [address] Phone Care Team Providers Care Manager Athletics Name Role Phone Alfonso Mcdonough MD Primary Care Provider [phone] Encounter Details Date Type Department Care Team (Late st Contact Info) Description 11/13/2010 Documentation [facility] [address] [place] [address] Family Medicine, Physician [address] [place], [place] [phone] Social History Tobacco Use Types Packs/Day Years [...] filedocumented in this encounter Care Teams Manager Athletics Relationship Specialty Start Date End Date Alfonso Mcdonough MD [address] [facility] [place] [address] PCP - General 04/19/17 04/29/24 documented as of this encounter
--- OUTSIDE RECORDS SUMMARY | 2024-12-24 11:46 | XMS_ITS | Encounter Summary ---
Author Organization [facility] Address [address] [place] [phone] Phone Care Team Providers Care Book Binder Name Role Phone Alfonso Mcdonough MD Primary Care Provider [phone] Encounter Details Date Type Department Care Team (Late st Contact Info) Description 12/27/2009 Documentation [facility] [address] [place] [address] Family Medicine, Physician [address] [place], [place] [phone] Social History Tobacco Use Types Packs/Day Years [...] on filedocumented in this encounter Care Teams Book Binder Relationship Specialty Start Date End Date Alfonso Mcdonough MD 150 [facility] [place] [address] PCP - General 04/19/17 04/29/24 documented as of this encounter
--- OUTSIDE RECORDS SUMMARY | 2024-12-24 11:46 | XMS_ITS | Encounter Summary ---
Author Organization [facility] Address [address] [place] [address] Phone Care Team Providers Care Manager Salt Name Role Phone Alfonso Mcdonough MD Primary Care Provider [phone] Encounter Details Date Type Department Care Team (Late st Contact Info) Description 04/25/2017 Conversion Encounter [facility] [place] [address] [place] [address] Social History Tobacco Use Types Packs/Day Years [...] filedocumented in this encounter Care Teams Manager Salt Relationship Specialty Start Date End Date Alfonso Mcdonough MD [address] [place] [address] PCP - General 04/19/17 04/29/24 documented as of this encounter
--- OUTSIDE RECORDS SUMMARY | 2024-12-24 11:46 | XMS_ITS | Continuity of Care Document ---
Author Name [facility] Organization [facility] Care Team Providers Care Executive Director Contract Shop Name Role Phone [facility] Unavailable Unavailable Problems Combined list of problems from Department of [facility] and Veterans Affairs facilities. It does not include entries that were removed or entered in error. 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 : [facility] Oral (given by mouth) Complet ed 08/06/2022 2 2021 21.0 0358C-N [facility] lidocaine 5% topical gel See Instruct ions, small amount to affected area every hr as needed for pain, # 28 g, 0 total refill(s ), Maintena nce, Pharmacy : [facility] Complet ed 04/12/20232022 28.0 0091C-N [facility] Proctofoam HC 1%-1% rectal foam 1 appl(s), Rectal, TID, X 7 days, # 10 g, 0 total refill(s ), Acute, Pharmacy : [facility] Per rectum Complet ed 04/08/20232022 10.0 0091C-[facility] psyllium 3.4 g/5.8 g oral powder for reconstitut ion 1 teaspoon ful, Oral, TID, PRN constipa tion, dissolve in 8 oz of fluid, # 450 g, 0 total refill(s ), Karolina alvarez, Pharmacy : [facility] Oral (given by mouth) Complet ed 04/12/20232022 450.0 0091C-N [facility] Immunizations Combined list of available immunizations from the Department of Defense and Veterans Affairs facilities. Immunization Series Date Given Administered By Site Reaction Lot Number CVX Code Drug Wringer Operator Status Comments Source hepatitis B adult vaccine 2021 BRENDALDURAND Shoul leif, right (delt oid) [id number] [employer] complet ed hepatitis B adult vaccine 08/21/22 Given 0358A-N [facility] SARS-CoV-2 mRNA(toziname dvi-dhsu-mhl) vac 2021 MERCEDESHEIST ERBERG Shoul leif, left (delt oid) [id number] [employer] complet ed SARS-CoV- 2 mRNA(tozi nameran-t ris-suc)v ac 08/21/22 Given 0358A-N [facility] measles/mumps /rubella virus vaccine 2021 DOMINIQUE gonzalez Arm [id number] [employer] complet ed measles/m umps/rube lla virus vaccine 08/21/22 Given 0358A-N [facility] adenovirus vaccine, live 2021 BARBARA RICE [id number] 143 [employer] [facility] complet ed adenoviru s vaccine, live 07/23/22 Given 0358A-N [facility] SARS-CoV-2 mRNA(toziname aer-xvbj-zxm) vac 2021 BROOKEMTHOMAS Shoul leif, left (delt oid) [id number] [employer] complet ed SARS-CoV- 2 mRNA(tozi nameran-t ris-suc)v ac 07/23/22 Given [facility] [place] hepatitis B adult vaccine 2021 ADRIANAMONROE Shoul leif, right (delt oid) [id number] [employer] complet ed hepatitis B adult vaccine 07/23/22 Given 0358A-N [facility] influenza virus vaccine, inactivated 2021 ARIANAKAGADO Shoul leif, left (delt oid) [id number] [employer] [place] complet ed influenza virus vaccine, inactivat ed 07/23/22 Given 0358A-N [facility] tetanus, diphtheria, acellular pertu is 2021 ARIANAKAGADO Shoul leif, right (delt oid) [id number] GlaxoSmith[employer] ne complet ed Early/Lat e Reason: Early/Lat e Reason: First dose given 0358A-N [facility] varicella virus vaccine 2021 LYNNETTE Alba t Arm [id number] [employer] complet ed varicella virus vaccine 07/23/22 Given 0358A-N [facility] measles/mumps /rubella virus vaccine 2021 LYNNETTE Alba t Arm [id number] Gl[employer]oSmithK[employer] ne complet ed measles/m umps/rube lla virus vaccine 07/23/22 Given 0358A-N [facility] meningococcal conjugate vaccine 2021 KARLIEEBOYD Shoul leif, right (delt oid) [id number] sanofi pasteur complet ed meningoco ccal conjugate vaccine 07/23/22 Given 0358A-N [facility] poliovirus vaccine, inactivated 2021 KARLIEEBOYD Shoul leif, right (delt oid) [id number] 10 sanofi pasteur complet ed polioviru s vaccine, inactivat ed 07/23/22 Given 0358A-N [facility] tuberculin purified protein derivative 2021 KARLIEETAMERA Arm, left forea rm [id number] sanofi pasteur complet ed tuberculi n purified protein derivativ e 07/23/22 Given 0358A-N [facility] Results Combined list of recent chemistry, hematology and other laboratory results from Department of Defense and Veterans Affairs, ranging from 15 months to all on record, depending upon the facility. Order Name Results Value Reference Range Date Interpretation Specimen Comments Source Blood Bank ABO Grouping.L C B 07/[address] [place] [address] Blood Bank Rh Factor.LC Positive 07/19 Result Comment: Please note: Prior records for this patient's ABO / Rh type are not available for additional verificatio n. Performed At: [address] [id number] Thony Apple MD Ph:[phone] [address] [place] [address] Hematolo gy Sickle Cell Screen Negative (07/18/22 12:35 PM) 07/[address] [place] [address] Hematolo gy G6PD Normal (07/18/22 12:35 PM) 07/[address] [place] [address] Miscella neous Sendouts DNA Sample Collected? YES 07/[address] [place] [address] Infectio us Disease Source of Test.LC Gen Force Test (07/18/22 12:35 PM) 07/[address] [place] [address] Infectio us Disease HCVAB CDD LC NEGATIVE 07/[address] [place] [address] Infectio us Disease HBSAb CDD LC NEGATIVE 07/[address] [place] [address] Infectio us Disease HIV-1/2 AG/AB 4G CDD LC NEGATIVE 07/18 Result Comment: Performed At: 1 [facility] [address] [place] [address] [address] [place] [address] WILLA FAY PHD Ph:[phone] [address] [place] [address] Infectio us Disease HBSAg CDD LC NEGATIVE 07/[address] [place] [address] Immunolo gy/Serol ogy Mumps IgG Antibody Negative *NA* (07/18/22 12:35 PM) 07/[address] [place] [address] Immunolo gy/Serol ogy Rubeola IgG Antibody Positive *NA* (07/18/22 12:35 PM) 07/[address] [place] [address] [place] Immunolo gy/Serol ogy Rubella IgG Antibody Positive *NA* (07/18/22 12:35 PM) 07/[address] [place] [address] Immunolo gy/Serol ogy VZV IgG Scrn Positive *NA* (07/18/22 12:35 PM) 07/[address] [place] [address] [facility] RPR.EPI NON-REAC TIVE 07/18 Result Comment: [...] on Performed by: Epidemiolog y Laboratory Service [facility] [id number] [place] [address], [place] [address] [place] [address] [facility] Hepatitis A Ab, Total.EPI POSITIVE 07/18 [...] acute or recent infection. Testing performed by [facility]. Performed by: Epidemiolog y Laboratory Service [facility] [id number] [place] [address], [place] [address] [place] [address] Vital Signs Combined list of inpatient and outpatient Vital Signs from Department of Defense and Veterans Affairs, ranging from 12 months to all on record, depending upon the facility. Vital Sign Value Date Comments Source Respiratory Rate 16 br/min 02/01/2023 12:41:[address] [place] [address] Systolic Blood Pressure 110 mm[Hg] 02/02/20 23 12:41:[address] [place] [address] Diastolic Blood Pressure 80 mm[Hg] 023 12:41:[address] [place] [address] Peripheral Pulse Rate 68 bpm 02/01/2023 12:41:00 [facility] Mean Arterial Pressure, Calc 90 mm[Hg] 02/01/2023 12:41:00 [facility] Temperature Oral 36.5 Kaykay 02/01/2023 12:41:00 [facility] Blood Pressure Manual Manual 02/01/2023 12:41:00 [facility] BP Site Left arm 02/01/2023 12:41:[address] [place] [address] Chai Systolic Blood Pressure 134 mm[Hg] 02/16/20 22 10:21:[address] [place] [address] MEPS Diastolic Blood Pressure 82 mm[Hg] 022 10:21:[address] [place] [address] MEPS Peripheral Pulse Rate 88 bpm 02/15/2022 10:21:[address] [place] [address] MEPS Respiratory Rate 16 br/min 04/01/2023 12:43:[address] [place] [address] Cahi Mean Arterial Pressure, Calc 83 mm[Hg] 04/01/2023 12:43:[address] [place] [address] Chai Peripheral Pulse Rate 63 bpm 04/01/2023 12:43:[address] [place] [address] Chai Blood Pressure Manual Automatic 04/01/2023 12:43:[address] [place] [address] Chai Temperature Oral 36.6 Kaykay 04/01/2023 12:43:00 [facility] Systolic Blood Pressure 116 mm[Hg] 04/01/20 23 12:43:00 [facility] Diastolic Blood Pressure 66 mm[Hg] 023 12:43:00 [facility] BP Site Left arm 04/01/2023 12:43:00 [facility] BP Site Right arm 04/15/2023 14:06:00 [facility] Blood Pressure Manual Manual 04/15/2023 14:06:00 [facility] Temperature Oral 36.8 Kaykay 04/15/2023 14:06:00 [facility] Mean Arterial Pressure, Calc 77 mm[Hg] 04/15/2023 14:06:00 [facility] Peripheral Pulse Rate 72 bpm 04/15/2023 14:06:[address] [place] [address] Respiratory Rate 16 br/min 04/15/2023 14:06:[address] [place] [address] Systolic Blood Pressure 100 mm[Hg] 04/15/20 23 14:06:[address] [place] [address] Diastolic Blood Pressure 66 mm[Hg] 023 14:06:[address] [place] [address] Procedures Combined list of: 1) Procedures from Department of [facility] facilities going back up to [facility] 18 months, not all [place] non-surgical procedures are included; 2) All procedures from the [facility] facilities. Procedure Procedure Type Code Date Perfomer Comments Sourbeatriz e No Procedure information available for data migration. [address] [place] [address] Social History Combined list of available smoking, tobacco, and other social history from [facility] and [facility] facilities. Social History Type Response Date Comment [...] future care activities from [facility] and [facility] facilities (e.g., assessment and plan notes, appointments, [...] disqualifying conditions. Appropriate for follow up with [place] medical providers. Documentation completed on the DD Form 2807-1 and DD Form 2808. ?Completed documentation scanned into Courtney?and the originals were returned to the patient. ? Nick Funez PA-C 3 [facility]? ? ? Extracted from:Title: Hemorrhoid Author: CHRISTOPHER [...] every hr as needed for pain, Pharmacy: [facility] [Not filled] hydrocortisone-pramoxine topical(Proctofoam HC 1%-1% rectal foam), 1 appl(s), Rectal, TID, X 7 days, # 10 g, 0 total refill(s), Acute, 1 appl(s) Rectal TID,x7 days, Pharmacy: [facility] [Not filled] psyllium(psyllium 3.4 g/5.8 g oral powder for reconstitution), 1 teaspoonful, Oral, TID, PRN constipation, dissolve in 8 oz of fluid, # 450 g, 0 total refill(s), Maintenance, 1 teaspoonful Oral TID,PRN:constipation,Instr:diss olve in 8 oz of fluid, Pharmacy: [facility] [Not filled] ? Extracted from:Title: [facility] - Thoracic back pain Author: ROCKY MEDELLIN [...] has hx of 1 no show at [facility]. No duty status limitations provided today. Pt v/u, denied questions or concerns. 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 ? ? Extracted from:Title: Education Note Author: JAC REED Date: 02/15/22 Patient Education Materials Follows: 12/24/[address] [place] [address] Assessment and Plan Extracted from:Title : RES SEP FROM AD Author: NICK FUNEZ PA-C Date: 04/15/23 1.?Encounter for other specified special examinations Patient is medically fit to separate from service. ?Patient has no apparent disqualifying conditions. Appropriate for follow up with [place] medical providers. Documentation completed on the DD Form 2807-1 and DD Form 2808. ?Completed documentation scanned into Courtney?and the originals were returned to the patient. ? Nick Funez PA-C 3 [facility]? ? ? Extracted from:Title: Hemorrhoid Author: CHRISTOPHER [...] every hr as needed for pain, Pharmacy: [facility] [Not filled] hydrocortisone-pramoxine topical(Proctofoam HC 1%-1% rectal foam), 1 appl(s), Rectal, TID, X 7 days, # 10 g, 0 total refill(s), Acute, 1 appl(s) Rectal TID,x7 days, Pharmacy: [facility] [Not filled] psyllium(psyllium 3.4 g/5.8 g oral powder for reconstitution), 1 teaspoonful, Oral, TID, PRN constipation, dissolve in 8 oz of fluid, # 450 g, 0 total refill(s), Maintenance, 1 teaspoonful Oral TID,PRN:constipation,Instr:diss olve in 8 oz of fluid, Pharmacy: [facility] [Not filled] ? Extracted from:Title: [facility] - Thoracic back pain Author: ROCKY MEDELLIN [...] concerns. HM1 Rocky MMorgan Medellin Independent Duty Contract Negotiation Specialist HM3 [place] ? ? ? Extracted from:Title: Education Note Author: JAC REED Date: 02/15/22 Patient Education Materials Follows: 12/24/[address] [place] [address] Functional Status Combined list of recent functional and cognitive assessments recorded at Department of Defense and Veterans Affairs (VA).VA Functional [place] Measurement (FIM) Scale: 1 = Total Assistance (Subject = 0% +), 2 = Maximal Assistance (Subject = 25% +), 3 = Moderate Assistance (Subject = 50% +), 4 = Minimal Assistance (Subject = 75% +), 5 = Supervision, 6 = Modified [place] (Device), 7 = Complete [place] (Timely, Safely). Assessment Date/Time Source Assessment Type Assessment Skill Assessment Score Assessment Details No data available for this section
--- OUTSIDE RECORDS SUMMARY | 2024-12-24 11:46 | XMS_ITS | Clinical Summary ---
Author Organization [facility] Address [address] [place] [phone] Phone Care Team Providers Care Business Continuity Analyst Name Role Phone Unavailable Primary Care Provider [...] 14 Meningococcal Vaccine Completed 09/03/2019, 014 Insurance [facility] [address] NON PCC [facility]
--- OUTSIDE RECORDS SUMMARY | 2024-12-24 11:46 | XMS_ITS | Encounter Summary ---
Author Organization [facility] Address [address] [place] [phone] Phone Care Team Providers Care Automobile Dealer Name Role Phone Alfonso Mcdonough MD Primary Care Provider [phone] Encounter Details Date Type Department Care Team (Late st Contact Info) Description 02/07/2015 Documentation EM Family Medicine [address] [place] [address] Family Medicine, Physician [address] [place], [place] [id number] Social History Tobacco Use Types Packs/Day Years [...] on filedocumented in this encounter Care Teams Automobile Dealer Relationship Specialty Start Date End Date Alfonso Mcdonough MD [address] [facility] [place] [address] PCP - General 04/19/17 04/29/24 documented as of this encounter
== END 2024-12-24 11:36 | disposition home or self-care (01) ==
PROVIDERS: Emergency Provider Emergency Medicine
DX: J02.9 Acute pharyngitis, unspecified (principal); Z03.818 Encounter for observation for suspected exposure to other biological agents ruled out
CPT/HCPCS: 0241U; 87651; 99283; J1100